=== PATIENT | female | born 1930 | race Caucasian/White ===

== ENCOUNTER 2018-08-28 08:35 | Emergency (ER) | payer OTHER ==
--- OUTSIDE RECORDS SUMMARY | 2018-08-28 08:38 | XMS REPORT | Clinical Summary ---
:1930 Author Organization [facility] Address [address] [place] [address] Phone Care Team Providers Name Role Phone Unavailable Primary Care Provider Unavailable Allergies Active Allergy Reactions Severity Noted Date Comments Penicillins Rash Low 2017 Current Medications Prescription Sig. Disp. Refills Start End Date Status Date atorvastatin (LIPITOR) Take 10 mg by Active 10 MG tablet mouth nightly. aspirin 81 MG chewable Take 81 mg by Active tablet mouth daily. omeprazole (PRILOSEC) 40 Take 40 mg by Active MG capsule mouth daily. linaclotide (LINZESS) Take 145 mcg Active 145 mcg Cap by mouth Every morning on an empty stomach. CALCIUM Take 600 mg Active CARBONATE/VITAMIN D3 by mouth 2 (CALTRATE-600 PLUS (two) times VITAMIN D3 ORAL) daily with breakfast and dinner. FOLIC Take 1 tablet Active ACID/MULTIVIT-MIN/LUTEIN by mouth as (CENTRUM SILVER ORAL) needed. acetaminophen (TYLENOL) Take 2 30 tablet 0 10/20/20 Active 325 MG tablet tablets (650 7 18 mg total) by mouth every 6 (six) hours as needed for Pain or Fever (headache) for up to 360 days. amlodipine-olmesartan Take 1 tablet 10/25/20 Discontinued (LINDSEY) 5-20 mg per by mouth 17 tablet daily. metoprolol (LOPRESSOR) Take 100 mg 10/25/20 Discontinued 100 MG tablet by mouth 17 nightly. hydroCHLOROthiazide Take 12.5 mg 10/25/20 Discontinued (HYDRODIURIL) 12.5 MG by mouth 17 tablet daily. acetaminophen (TYLENOL) Take 650 mg 10/25/20 Discontinued 325 MG tablet by mouth 17 every 6 (six) hours as needed for Pain. ACETAMINOPHEN/DIPHENHYDR Take 500 mg 10/25/20 Discontinued AMINE (TYLENOL PM ORAL) by mouth 17 every night as needed. senna-docusate (SENOKOT Take 1 tablet 60 tablet 0 11/24/19 S) 8.6-50 mg per tablet by mouth 2 7 18 (two) times daily for 30 days. lactulose (CHRONULAC) 20 Take 30 mLs 2700 mL 0 10/25/20 Discontinued gram/30 mL solution (20 g total) 7 17 by mouth 3 (three) times daily for 30 days. amLODIPine (NORVASC) 10 Take 1 tablet 30 tablet 0 11/25/19 MG tablet (10 mg total) 7 18 by mouth daily for 30 days. lactulose (CHRONULAC) 20 Take 30 mLs 2700 mL 0 11/24/19 gram/30 mL solution (20 g total) 7 18 by mouth 3 (three) times daily as needed (constipation ) for up to 30 days. losartan (COZAAR) 25 MG Take 1 tablet 30 tablet 0 11/25/19 tablet (25 mg total) 7 18 by mouth daily for 30 days. HYDROcodone-acetaminophe Take 1 tablet 10 tablet 0 11/04/20 n (NORCO 5-325) 5-325 mg by mouth 7 17 per tablet every 6 (six) hours as needed for up to 10 days. Max Daily Amount: 4 tablets Active Problems Problem Noted Date Hypertension, essential 10/14/2017 Fracture of left humerus 10/14/2017 Diplopia 10/14/2017 Bradycardia 10/14/2017 Macrocytic anemia 10/14/2017 History of DVT (deep vein thrombosis) 10/14/2017 Class 1 obesity without serious comorbidity with body mass index (BMI) of 31.0 to 31.9 in adult Stroke (HCC) 2017 Encounters Date Type Specialty Care Team Description 10/19/2017 Procedure Pass 10/19/2017 Surgery Margie, ORIEduardo,HUMERUS Rafael Mathis MD 10/18/2017 Anesthesia Event Jo Shaikh MD 10/14/2017 Orders Only General Internal Medicine 2017 - Hospital Encounter General Internal Nathan Rosa Acute ischemic 10/25/2017 Medicine MD Semaj stroke Anirudh Brooks MD ([facility]);Received Lety Sandoval tissue plasminogen MD Darius activator (t-PA) less than 24 hours prior to arrival;Closed fracture of shoulder, unspecified laterality, initial encounter;Bradycard ia;Class 1 obesity without serious comorbidity with body mass index (BMI) of 31.0 to 31.9 in adult, unspecified obesity type;Diplopia;Histo ry of DVT (deep vein thrombosis);Hyperte nsion, essential;Macrocyti c anemia;Late effect of stroke after 08/27/2017 Social History Tobacco Use Types Packs/Day Years Used Date Never Smoker Smokeless Tobacco: Never Used Alcohol Use Drinks/Week oz/Week Comments No Sex Assigned at Date Recorded Not on file Last Filed Vital Signs Vital Sign Reading Time Taken Blood Pressure 123/60 10/25/2017 3:00 PM LAYOUT MAN Pulse 81 10/25/2017 3:00 PM LAYOUT MAN Temperature 36.5 C (97.7 F) 10/25/2017 3:00 PM LAYOUT MAN Respiratory Rate 18 10/25/2017 3:00 PM LAYOUT MAN Oxygen Saturation 95% 10/25/2017 3:00 PM LAYOUT MAN Inhaled Oxygen Concentration - - Weight 72 kg (158 lb 11.7 oz) 10/14/2017 1:00 AM LAYOUT MAN Height 152.4 cm (5') 2017 1:05 PM LAYOUT MAN Body Mass Index 31 10/14/2017 1:00 AM LAYOUT MAN Plan of Treatment Not on file Implants Implanted Type Area Industrial Education Teacher Device Expiration Model / Identifier Date Serial / Lot Scr Lck St T15 3.5x38 Ns 212.116 - [id number] Fracture Left: SYNTHES:SYNTHES 212.116 / Implanted: Qty: 2 on 10/19/2017 by Rafael Hanson MD /[employer] / n Scr Lck St T15 3.5x40 Ns 212.117 - [id number] Fracture Left: SYNTHES:SYNTHES 212.117 / Implanted: Qty: 4 on 10/19/2017 by Rafael Hanson MD /[employer] / n Scr Lck St T15 3.5x45 Ns 212.119 - [id number] Fracture Left: SYNTHES:SYNTHES 212.119 / Implanted: Qty: 4 on 10/19/2017 by Rafael Hanson MD /[employer] / n Scr Lck St T15 3.5x50 Ns 212.121 - [id number] Fracture Left: SYNTHES:SYNTHES 212.121 / Implanted: Qty: 1 on 10/19/2017 by Rafael Hanson MD /[employer] / n Scr Crtx St D/L/P 3.5x24 Ns - [id number] Fracture Left: SYNTHES:SYNTHES 204.824 / Implanted: Qty: 2 on 10/19/2017 by Rafael Hanson MD /[employer] / n Scr Crtx St D/L/P 3.5x26 Ns - [id number] Fracture Left: SYNTHES:SYNTHES 204.826 / Implanted: Qty: 2 on 10/19/2017 by Rafael Hanson MD /[employer] / n Plt Hum Prx Lcp Std 5h 3.5x114 241.903 - [id number] Fracture Left: SYNTHES: SYNTHES 241.903 / Implanted: Qty: 1 on 10/19/2017 by Rafael Hanson MD /[employer] / n [id number] Wire-K Trcr-1e Pt-5 1.6x150 Ns 292.71 - [id number] Fracture Left: SYNTHES: SYNTHES 292.71 / Implanted: Qty: 1 on 10/19/2017 by Rafael Hanson MD /[employer] / n Explanted Type Area Industrial Education Teacher Device Expiration Model / Identifier Date Serial / Lot Pin Stnmn Trcr Dbl End3/32x9in [id number] - [id number] Fracture Left: TELEFLEX [id number] / Explanted: Qty: 4 on 10/19/2017 by Rafael Hanson MD /[employer] MED:K-MEDIC / n Procedures Procedure Name Priority Date/Time Associated Diagnosis Comments PROCEDURE W/ C-ARM 10/19/2017 11:40 AM LAYOUT MAN Closed fracture of proximal end of left humerus, unspecified fracture morphology, initial encounter Special Needs (C-ARM, SYNTHES, REQ 0730) ORIF,HUMERUS 10/19/2017 11:40 AM LAYOUT MAN Closed fracture of proximal end of left humerus, unspecified fracture morphology, initial encounter Special Needs (C-ARM, SYNTHES, REQ 0730) after 08/27/2017 Results EKG-SCANNED (10/27/2017 10:20 AM)RHYTHM STRIP - SCAN (10/27/2017 10:20 AM)POC- Glucose meter (10/25/2017 5:25 PM)Only the most recent of48 resultswithin the time period is included. Component Value Ref Range POC-Glucose Meter 115 (H)Comment: TESTED AT [address] 70 - 110 mg/[place] [id number] Specimen Performing Laboratory Blood [address] [address] CBC with platelet count + automated diff (10/25/2017 5:10 AM)Only the most recent of13 resultswithin the time period is included. Component Value Ref Range WBC 10.9 (H) 3.5 - 10.5 K/L RBC 2.41 (L) 3.93 - 5.22 M/L Hemoglobin 8.0 (L) 11.2 - 15.7 GM/DL Hematocrit 23.4 (L) 34.1 - 44.9 % MCV 97.1 (H) 79.4 - 94.8 fL MCH 33.2 (H) 25.6 - 32.2 pg MCHC 34.2 32.2 - 35.5 GM/DL RDW 14.1 11.7 - 14.4 % Platelets 605 (H) 150 - 450 K/CU MM MPV 9.3 (L) 9.4 - 12.3 fL nRBC 0 0 - 0 /100 WBC % Neutros 59 % % Lymphs 27 % % Monos 11 % % Eos 3 % % Baso 0 % # Neutros 6.44 (H) 1.56 - 6.13 K/L # Lymphs 2.92 1.18 - 3.74 K/L # Monos 1.18 (H) 0.24 - 0.36 K/L # Eos 0.31 0.04 - 0.36 K/L # Baso 0.04 0.01 - 0.08 K/L Immature Granulocytes-Relative 0 0 - 1 % Specimen Performing Laboratory Blood - Arm, Right [address] [address] CBC with platelet count + automated diff (10/25/2017 5:10 AM)Only the most recent of13 resultswithin the time period is included. Specimen Performing Laboratory Blood Narrative The following orders were created for panel order CBC with platelet count + automated diff. Procedure Abnormality Status --------- ------ CBC with platelet count ...[[id number]]AbnormalFinal result Please view results for these tests on the individual orders. Basic Metabolic Panel (10/25/2017 5:10 AM)Only the most recent of15 resultswithin the time period is included. Component Value Ref Range Sodium 136 136 - 145 meq/L Potassium 4.0 3.5 - 5.1 meq/L Chloride 100 98 - 107 meq/L CO2 26 22 - 29 meq/L BUN 6 (L) 7 - 21 mg/dL Creatinine 0.70 0.57 - 1.25 mg/dL Glucose 90 70 - 105 mg/dL Calcium 8.7 8.4 - 10.2 mg/dL EGFR 79Comment: ESTIMATED GFR IS NOT ACCURATE mL/min/1.73 sq m CREATININE CLEARANCE IN PREDICTING GLOMERULAR FILTRATION RATE. ESTIMATED GFR IS NOT APPLICABLE FOR DIALYSIS PATIENTS. Specimen Performing Laboratory Blood - Arm, [place] [address] TRANSFUSION SERVICE REPORT - SCAN (10/20/2017 5:42 PM)CT pelvis without IV contrast (10/19/2017 6:51 PM) Specimen Performing Laboratory [facility] Narrative FINAL REPORT CT, PELVIS, WO CONTRAST INDICATION: Pelvis trauma, fx known or suspected, xray insufficient COMPARISON: Correlation to plain films series of the same date, approximately eight hours prior TECHNIQUE: Noncontrast CT examination of the pelvic osseous structures. Coronal and sagittal reformatted images also provided. DOSE REDUCTION: Dose modulation, iterative reconstruction, and/or weight-based adjustment of the mA/kV was utilized to reduce the radiation dose to as low as reasonably achievable. FINDINGS: Osseous structures: Pelvic bones are intact. Acetabular brumfield and columns are preserved. Inferior and superior pubic rami are intact. The symphyseal interval is preserved. Degenerative changes are present bilaterally at the sacroiliac joints. Sacral elements are intact. The femoral heads, necks and proximal shafts are intact. No joint effusion is present. Soft tissue structures: Mild atrophic changes are noted in the pelvic girdle. There is no hematoma. Included portions of the peritoneal and retroperitoneal structures reveal no traumatic abnormalities. Incidental note of distal diverticular disease without associated inflammatory signs. Superficial soft tissue structures are unremarkable. Urinary bladder is decompressed by the presence of a Lee catheter. IMPRESSION: Degenerative changes without acute or traumatic osseous abnormality in the pelvis. Signed: JR Mason Robert MD Report Verified Date/Time:10/19/2017 21:24:34 Reading Location: [address] Transitional Reading Room Procedure Note Interface, External Ris In - 10/19/2017 9:26 PM LAYOUT MAN FINAL REPORT CT, PELVIS, WO CONTRAST INDICATION: Pelvis trauma, fx known or suspected, xray insufficient COMPARISON: Correlation to plain films series of the same date, approximately eight hours prior TECHNIQUE: Noncontrast CT examination of the pelvic osseous structures. Coronal and sagittal reformatted images also provided. DOSE REDUCTION: Dose modulation, iterative reconstruction, and/or weight-based adjustment of the mA/kV was utilized to reduce the radiation dose to as low as reasonably achievable. FINDINGS: Osseous structures: Pelvic bones are intact. Acetabular brumfield and columns are preserved. Inferior and superior pubic rami are intact. The symphyseal interval is preserved. Degenerative changes are present bilaterally at the sacroiliac joints. Sacral elements are intact. The femoral heads, necks and proximal shafts are intact. No joint effusion is present. Soft tissue structures: Mild atrophic changes are noted in the pelvic girdle. There is no hematoma. Included portions of the peritoneal and retroperitoneal structures reveal no traumatic abnormalities. Incidental note of distal diverticular disease without associated inflammatory signs. Superficial soft tissue structures are unremarkable. Urinary bladder is decompressed by the presence of a Lee catheter. IMPRESSION: Degenerative changes without acute or traumatic osseous abnormality in the pelvis. Signed: JR Mason Robert MD Report Verified Date/Time: 10/19/2017 21:24:34 Reading Location: [address] Transitional Reading Room Hemoglobin and hematocrit, blood (10/19/2017 4:52 PM) Component Value Ref Range Hemoglobin 8.2 (L) 11.2 - 15.7 GM/DL Hematocrit 23.7 (L) 34.1 - 44.9 % Specimen Performing Laboratory Blood [facility] [address] [address] [place] abrading machine tender in or 30 minute increments (10/19/2017 3:05 PM) Specimen Performing Laboratory GE [facility] Narrative FINAL REPORT Fluoroscopic exam Clinical History: LEFT HUMERUS ORIF Impression: Fluoroscopic assistance is provided for a procedure. The radiologist is not present during the procedure. Images are presented for interpretation at the completion of the procedure.Please refer to the procedure report for more details. Number of images obtained:2 Fluoroscopy time: Not provided Signed: Sanford Bradley MD Report Verified Date/Time:10/19/2017 17:00:21 Reading Location: [address] Consult Reading Room Procedure Note Interface, External Ris In - 10/19/2017 5:02 PM LAYOUT MAN FINAL REPORT Fluoroscopic exam Clinical History: LEFT HUMERUS ORIF Impression: Fluoroscopic assistance is provided for a procedure. The radiologist is not present during the procedure. Images are presented for interpretation at the completion of the procedure. Please refer to the procedure report for more details. Number of images obtained: 2 Fluoroscopy time: Not provided Signed: Sanford Bradley MD Report Verified Date/Time: 10/19/2017 17:00:21 Reading Location: [address] Consult Reading Room THESIA PERIPHERAL BLOCK (10/19/2017 11:32 AM) Narrative Lisha Brown MD 10/19/2017 11:32 AM Peripheral Block Patient location during procedure: pre-op Start time: 10/19/2017 11:20 AM End time: 10/19/2017 11:24 AM Staffing Anesthesiologist: LISHA BROWN Performed by: anesthesiologist Preanesthetic Checklist Completed: patient identified, site marked, surgical consent, pre-op evaluation, timeout performed, IV checked, risks and benefits discussed and monitors and equipment checked Peripheral Block Patient position: right lateral decubitus Prep: ChloraPrep Patient monitoring: heart rate, quality assurance monitor final and continuous pulse ox Block type: Interscalene Laterality: left Injection technique: single-shot Procedures: ultrasound guided, nerve stimulator and landmark technique Local infiltration: ropivicaine Infiltration strength: 0.35 % Dose: 20 mL Needle Needle type: pajunk. Needle gauge: 21 G Needle length: 100 mm Assessment Injection assessment: negative aspiration for heme, no paresthesia on injection, incremental injection and local visualized surrounding nerve on ultrasound Paresthesia pain: none Heart rate change: no Slow fractionated injection: yes Additional Notes Patient tolerated well.No pain on injection or throughout procedure. Procedure Note Lisha Brown MD - 10/19/2017 11:30 AM LAYOUT MAN Peripheral Block Patient location during procedure: pre-op Start time: 10/19/2017 11:20 AM End time: 10/19/2017 11:24 AM Staffing Anesthesiologist: LISHA BROWN Performed by: anesthesiologist Preanesthetic Checklist Completed: patient identified, site marked, surgical consent, pre-op evaluation , timeout performed, IV checked, risks and benefits discussed and monitors and equipment checked Peripheral Block Patient position: right lateral decubitus Prep: ChloraPrep Patient monitoring: heart rate, quality assurance monitor final and continuous pulse ox Block type: Interscalene Laterality: left Injection technique: single-shot Procedures: ultrasound guided, nerve stimulator and landmark technique Local infiltration: ropivicaine Infiltration strength: 0.35 % Dose: 20 mL Needle Needle type: pajunk. Needle gauge: 21 G Needle length: 100 mm Assessment Injection assessment: negative aspiration for heme, no paresthesia on injection , incremental injection and local visualized surrounding nerve on ultrasound Paresthesia pain: none Heart rate change: no Slow fractionated injection: yes Additional Notes Patient tolerated well. No pain on injection or throughout procedure. XR hip 2 views left (10/19/2017 11:02 AM) Specimen Performing Laboratory [facility] Narrative FINAL REPORT Radiograph of the pelvis and left hip Reason for exam: Possible left femoral neck fracture Comparison:No prior Discussion: No displaced fracture, or location is identified. Symphysis pubis is congruent. Bony mineralization is slightly decreased. Visualized soft tissues are unremarkable. Impressions: No fracture or dislocation is identified. Signed: Sanford Bradley MD Report Verified Date/Time:10/19/2017 11:15:18 Reading Location: [facility] Radiology Reading Room Procedure Note Interface, External Ris In - 10/19/2017 11:17 AM LAYOUT MAN FINAL REPORT Radiograph of the pelvis and left hip Reason for exam: Possible left femoral neck fracture Comparison: No prior Discussion: No displaced fracture, or location is identified. Symphysis pubis is congruent. Bony mineralization is slightly decreased. Visualized soft tissues are unremarkable. Impressions: No fracture or dislocation is identified. Signed: Sanford Bradley MD Report Verified Date/Time: 10/19/2017 11:15:18 Reading Location: [facility] Radiology Reading Room pelvis 1 or 2 views (10/19/2017 11:02 AM) Specimen Performing Laboratory GE RIS Narrative FINAL REPORT Radiograph of the pelvis and left hip Reason for exam: Possible left femoral neck fracture Comparison:No prior Discussion: No displaced fracture, or location is identified. Symphysis pubis is congruent. Bony mineralization is slightly decreased. Visualized soft tissues are unremarkable. Impressions: No fracture or dislocation is identified. Signed: Sanford Bradley MD Report Verified Date/Time:10/19/2017 11:15:18 Reading Location: [facility] Radiology Reading Room Procedure Note Interface, External Ris In - 10/19/2017 11:17 AM LAYOUT MAN FINAL REPORT Radiograph of the pelvis and left hip Reason for exam: Possible left femoral neck fracture Comparison: No prior Discussion: No displaced fracture, or location is identified. Symphysis pubis is congruent. Bony mineralization is slightly decreased. Visualized soft tissues are unremarkable. Impressions: No fracture or dislocation is identified. Signed: Sanford Bradley MD Report Verified Date/Time: 10/19/2017 11:15:18 Reading Location: [facility] Radiology Reading Room Type and screen, automated (10/19/2017 3:56 AM) Component Value Ref Range ABO/RH AUTOMATED (BEAKER) A POSITIVE Ab Scrn NEGATIVE Specimen Performing Laboratory Blood [facility] [address] [address] ECHOCARDIOGRAM REPORT - SCAN (10/17/2017 7:20 AM)Only the most recent of2 resultswithin the time period is included.Phosphorus (10/17/2017 6:25 AM)Only the most recent of4 resultswithin the time period is included. Component Value Ref Range Phosphorus 2.7 2.3 - 4.7 mg/dL Specimen Performing Laboratory Blood [address] [address] Osmolality, serum (10/17/2017 6:25 AM) Component Value Ref Range Osmolality Serum 276 275 - 295 mOsm/kg Specimen Performing Laboratory [address] [address] Magnesium (10/17/2017 6:25 AM)Only the most recent of4 resultswithin the time period is included. Component Value Ref Range Magnesium 1.8 1.6 - 2.6 mg/dL Specimen Performing Laboratory [address] [address] Sodium, random urine (10/16/2017 2:16 PM) Component Value Ref Range Sodium Urine <20 meq/L Specimen Performing Laboratory Urine - Urine, [facility] [address] [address] Narrative Reference Range: No Normals Potassium, random urine (10/16/2017 2:16 PM) Component Value Ref Range Potassium Urine 16.3 meq/L Specimen Performing Laboratory Urine - Urine, [facility] [address] [address] Narrative Reference Range: No Normals Osmolality, urine (10/16/2017 2:16 PM) Component Value Ref Range Osmolality, Ur 237 40 - 1400 mOsm/kg Specimen Performing Laboratory Urine - Urine, [address] [address] Chloride, random urine (10/16/2017 2:16 PM) Component Value Ref Range ChlorideUr <20 meq/L Specimen Performing Laboratory Urine - Urine, [facility] [address] [address] Narrative Reference Range: No Normals CT upper extremity without contrast left (10/16/2017 9:50 AM) Specimen Performing Laboratory [facility] Narrative FINAL REPORT INDICATION: 87-year-old female with left proximal humerus fracture. COMPARISON: Left humerus radiograph 2017 TECHNIQUE: CT of the upper extremity (left shoulder / proximal humerus) was performed WITHOUT contrast. The exam was performed according to our department dose-optimization protocol, which includes automated exposure control, adjustments of mA and kV according to patient size. Iterative reconstructions are also sometimes employed. FINDINGS: There is a three part fracture of the left humeral neck. The primary fracture fragment (humeral shaft) is displaced anterolaterally approximately 1.5 cm and angulated 70 degrees posterolateral relative to the humeral head. The secondary fracture fragment (greater tuberosity) measures approximately 2 x 1 x 1 cm and is displaced 1 cm. There is also a nondisplaced fracture involving the lesser tuberosity. The humeral head is severely subluxed anterior and inferior to the glenoid. There is no glenoid fracture. There is a lipohemarthrosis with layering fat in the anterior subdeltoid bursa indicating a full thickness rotator cuff tear. Mild bony hypertrophy of the acromioclavicular joint is noted. No fracture is demonstrated in the visualized part of the left clavicle or in the visualized left ribs. IMPRESSION: Three part left humeral neck fracture with anteroinferior severe subluxation of the humeral head and with rotator cuff tear. Signed: Bayron Rosas MD Report Verified Date/Time:10/16/2017 11:49:30 Reading Location: [address] Reading Room Procedure Note Interface, External Ris In - 10/16/2017 11:51 AM LAYOUT MAN FINAL REPORT INDICATION: 87-year-old female with left proximal humerus fracture. COMPARISON: Left humerus radiograph 2017 TECHNIQUE: CT of the upper extremity (left shoulder / proximal humerus) was performed WITHOUT contrast. The exam was performed according to our department dose-optimization protocol, which includes automated exposure control, adjustments of mA and kV according to patient size. Iterative reconstructions are also sometimes employed. FINDINGS: There is a three part fracture of the left humeral neck. The primary fracture fragment (humeral shaft) is displaced anterolaterally approximately 1.5 cm and angulated 70 degrees posterolateral relative to the humeral head. The secondary fracture fragment (greater tuberosity) measures approximately 2 x 1 x 1 cm and is displaced 1 cm. There is also a nondisplaced fracture involving the lesser tuberosity. The humeral head is severely subluxed anterior and inferior to the glenoid. There is no glenoid fracture. There is a lipohemarthrosis with layering fat in the anterior subdeltoid bursa indicating a full thickness rotator cuff tear. Mild bony hypertrophy of the acromioclavicular joint is noted. No fracture is demonstrated in the visualized part of the left clavicle or in the visualized left ribs. IMPRESSION: Three part left humeral neck fracture with anteroinferior severe subluxation of the humeral head and with rotator cuff tear. Signed: Bayron Rosas MD Report Verified Date/Time: 10/16/2017 11:49:30 Reading Location: [address] Transitional Reading Room Urinalysis w/Microscopic + Reflex to Culture (10/15/2017 4:48 PM) Component Value Ref Range Color, UA Yellow Clarity, UA Hazy Specific [place], UA 1.011 1.001 - 1.035 pH, UA 5.5 5.0 - 8.0 Protein, UA Negative Negative Glucose, UA Negative Negative Ketones, UA Negative Negative Bilirubin, UA Negative Negative Blood, UA Negative Negative Nitrite, UA Negative Negative Leukocytes, UA Large (A) Negative Urobilinogen, UA 0.2 0.2 - 1.0 mg/dL RBC, UA 1 /HPF WBC, UA 23 /HPF Bacteria, UA Many Mucus Rare Hyaline Casts, UA 3 /LPF Crystals, Urine Occasional Specimen Source Specimen Performing Laboratory Urine [address] [address] Urine culture (10/15/2017 4:48 PM) Component Value Ref Range Result Result >100,000 col/mL Klebsiella pneumoniae (A) Specimen Performing Laboratory Urine - Urine, Unspecified Source [address] [address] Organism Antibiotic Method Susceptibility Klebsiella pneumoniae Amikacin <=2: Susceptible Klebsiella pneumoniae Ampicillin + Sulbactam 4: Susceptible Klebsiella pneumoniae Aztreonam <=1: Susceptible Klebsiella pneumoniae Cefepime <=1: Susceptible Klebsiella pneumoniae Cefoxitin <=4: Susceptible Klebsiella pneumoniae Ceftazidime <=1: Susceptible Klebsiella pneumoniae Ceftriaxone <=1: Susceptible Klebsiella pneumoniae Ertapenem <=0.5: Susceptible Klebsiella pneumoniae Gentamicin <=1: Susceptible Klebsiella pneumoniae Levofloxacin <=0.12: Susceptible Klebsiella pneumoniae Meropenem <=0.25: Susceptible Klebsiella pneumoniae Nitrofurantoin 64: Resistant Klebsiella pneumoniae Piperacillin + Tazobactam <=4: Susceptible Klebsiella pneumoniae Tetracycline <=1: Susceptible Klebsiella pneumoniae Tobramycin <=1: Susceptible Klebsiella pneumoniae Trimethoprim + Sulfamethoxazole <=20: Susceptible Limited 2D Echocardiogram (10/15/2017 3:36 PM) Component Value Ref Range Ejection Fraction Specimen Performing Laboratory [facility] Narrative Transthoracic Echocardiography Report (TTE) Demographics Patient Name MAIKOL MCKEON Date of Study 10/15/2017 [id number] Female Visit Number [id number] [id number] Room Number 2226 Number Date of Birth1930Referring Physician Moe Evans Age87 year(s)Homemaker Companion Alivia Ramirez Interpreting Lucero Saenz MD Procedure Type of Study TTE procedure:LIMITED 2D ECHOCARDIOGRAM (Routine) Indications:PFO and Stroke workup . Clinical History HGB 10.2 HCT 29 % Stroke, HTN, Bradycardia, DVT, Anemia, Obesity Contrast Medium: Bubble Study. Height: 60 inches Weight: 71.67 kg (158 lbs) BSA: 1.69 m^2 BMI: 30.86 kg/m^2 HR: 80 bpm BP: 161/70 mmHg Signature Findings Technical Quality: Technically adequate exam. Left Limited study to evaluate PFO. Full study was done . Ventricle Atrial IV saline contrast injection was negative for a PFO (patent Septum foramen ovale) at rest and post Valsalva . Procedure Note Interface, External Ris In - 10/16/2017 8:38 PM LAYOUT MAN Transthoracic Echocardiography Report (TTE) Demographics Patient Name MAIKOL MCKEON Date of Study 10/15/2017 Gender Female Visit Number [id number] Race Room Number 2226 Number Date of 1930 Referring Physician Moe Evans Age 87 year(s) Homemaker Companion Alivia Tony Pullman Car Clerk Lesly Ramirez Interpreting Sloane Saenz Physician Procedure Type of Study TTE procedure:LIMITED 2D ECHOCARDIOGRAM (Routine) Indications:PFO and Stroke workup . Clinical History HGB 10.2 HCT 29 % Stroke, HTN, Bradycardia, DVT, Anemia, Obesity Contrast Medium: Bubble Study. Height: 60 inches Weight: 71.67 kg (158 lbs) BSA: 1.69 m^2 BMI: 30.86 kg/m^2 HR: 80 bpm BP: 161/70 mmHg Signature Findings Technical Quality: Technically adequate exam. Left Limited study to evaluate PFO. Full study was done 10-14-17. Ventricle Atrial IV saline contrast injection was negative for a PFO (patent Septum foramen ovale) at rest and post Valsalva . PERIPHERAL VASCULAR REPORT - SCAN (10/15/2017 2:50 PM)Only the most recent of2 resultswithin the time period is included.Venous doppler legs bilateral (2016 10:51 AM) Component Value Ref Range Ejection Fraction Specimen Performing Laboratory [facility] Impressions Right Impression 1. There is no deep venous obstruction in the common femoral, profunda femoral, femoral, popliteal, posterior tibial or peroneal veins. 2. There is no superficial venous obstruction in the great saphenous vein. Left Impression 1. There is no deep venous obstruction in the common femoral, profunda femoral, femoral, popliteal, posterior tibial or peroneal veins. 2. There is no superficial venous obstruction in the great saphenous vein. Conclusions Summary Venous duplex imaging and compression of the bilateral lower extremities were performed. The veins were adequately visualized. The bilateral venous systems were patent and compressible with no evidence of thrombus. The venous Doppler waveforms were phasic with respiration. Signature Velocities are measured in cm/s ; Diameters are measured in cm Narrative PV LAB - Lower Extremities DVT Study Demographics Patient Name PRACHI,Date of Study2016 [place] [id number] Visit Number [id number] Gender Female Accession Number [id number] Date of Birth1930 [facility] Room [id number] Physician SonographerScindy Freitas Interpreting Kamari Brunner MD, PhysicianRPVI Procedure Type of Study: Veins: Lower Extremities DVT Study, VENOUS DOPPLER LEG, BILATERAL. Indications for Study:History of deep vein thrombosis. Patient Status:Routine. Study Location:Vascular Lab. Technical Quality:Adequate visualization. Risk Factors History of Disease + +----+ + !Diagnosis !Date!Comments ! + +----+ + !History/Risk Factors: !!Stroke, HTN, fractured arm, h/o DVT ! + +----+ + Procedure Note Interface, External Ris In - 10/15/2017 2:04 PM LAYOUT MAN PV LAB - Lower Extremities DVT Study Demographics Patient Name PRACHI, Date of Study 10/15/2017 [place] Age 87 Visit Number [id number] Gender Female Accession Number [id number] Date of 1930 Referring Nathan Rosa Room Number 2226 Physician Homemaker Companion Abbey Freitas Interpreting Kamari Brunner MD, Physician RPVI Procedure Type of Study: Veins: Lower Extremities DVT Study, VENOUS DOPPLER LEG, BILATERAL. Indications for Study:History of deep vein thrombosis. Patient Status:Routine. Study Location:Vascular Lab. Technical Quality:Adequate visualization. Risk Factors History of Disease + +----+ + !Diagnosis !Date!Comments ! + +----+ + !History/Risk Factors: ! !Stroke, HTN, fractured arm, h/o DVT ! + +----+ + Impressions Right Impression 1. There is no deep venous obstruction in the common femoral, profunda femoral, femoral, popliteal, posterior tibial or peroneal veins. 2. There is no superficial venous obstruction in the great saphenous vein. Left Impression 1. There is no deep venous obstruction in the common femoral, profunda femoral, femoral, popliteal, posterior tibial or peroneal veins. 2. There is no superficial venous obstruction in the great saphenous vein. Conclusions Summary Venous duplex imaging and compression of the bilateral lower extremities were performed. The veins were adequately visualized. The bilateral venous systems were patent and compressible with no evidence of thrombus. The venous Doppler waveforms were phasic with respiration. Signature Velocities are measured in cm/s ; Diameters are measured in cm Venous Doppler Arms Bilateral (10/15/2017 10:51 AM) Component Value Ref Range Ejection Fraction Specimen Performing Laboratory [facility] Impressions Right Impression 1. There is no deep venous obstruction in the jugular, subclavian, axillary, brachial, radial or ulnar veins. 2. There is no superficial venous obstruction in the cephalic or basilic veins. Left Impression 1. There is no deep venous obstruction in the jugular or subclavian veins. 2. The axillary, brachial, radial, ulnar, cephalic and basilic veins could not be visualized due to patient inability to move arm because of fracture and dislocation of shoulder. Conclusions Summary Venous duplex imaging and compression of the bilateral upper extremities was performed. The veins were adequately visualized. The right venous system was patent and compressible with no evidence of thrombus. The left jugular and subclavian veins were patent and compressible with no evidence of thrombus. The left axillary, brachial, radial, ulnar, cephalic and basilic veins were not visualized due to patient inability to move arm because of fracture and dislocation of shoulder. Signature Velocities are measured in cm/s ; Diameters are measured in cm Narrative PV LAB - Upper Extremities Veins Demographics Patient Name PRACHI,Date of Study2016 [place] [id number] Age87 Visit Number [id number] Gender Female Accession Number [id number] Date of Birth1930 [facility] Room [id number] Physician SonographerScindy Freitas Interpreting Kamari Brunner MD, PhysicianRPVI Procedure Type of Study: Veins: Upper Extremities Veins, VENOUS DOPPLER ARMS, BILATERAL. Indications for Study:History of deep vein thrombosis. Patient Status:Routine. Study Location:Vascular Lab. Technical Quality:Adequate visualization. Risk Factors History of Disease + +----+ + !Diagnosis !Date!Comments ! + +----+ + !History/Risk Factors: !!Stroke, HTN, fractured arm, h/o DVT ! + +----+ + Procedure Note Interface, External Ris In - 10/15/2017 2:04 PM LAYOUT MAN PV LAB - Upper Extremities Veins Demographics Patient Name PRACHI, Date of Study 10/15/2017 [place] Age 87 Visit Number [id number] Gender Female Accession Number [id number] Date of 1930 Referring Moe Evans Room Number 2226 Physician Homemaker Companion Abbey Freitas Interpreting Kamari Brunner MD, Physician RPVI Procedure Type of Study: Veins: Upper Extremities Veins, VENOUS DOPPLER ARMS, BILATERAL. Indications for Study:History of deep vein thrombosis. Patient Status:Routine. Study Location:Vascular Lab. Technical Quality:Adequate visualization. Risk Factors History of Disease + +----+ + !Diagnosis !Date!Comments ! + +----+ + !History/Risk Factors: ! !Stroke, HTN, fractured arm, h/o DVT ! + +----+ + Impressions Right Impression 1. There is no deep venous obstruction in the jugular, subclavian, axillary, brachial, radial or ulnar veins. 2. There is no superficial venous obstruction in the cephalic or basilic veins. Left Impression 1. There is no deep venous obstruction in the jugular or subclavian veins. 2. The axillary, brachial, radial, ulnar, cephalic and basilic veins could not be visualized due to patient inability to move arm because of fracture and dislocation of shoulder. Conclusions Summary Venous duplex imaging and compression of the bilateral upper extremities was performed. The veins were adequately visualized. The right venous system was patent and compressible with no evidence of thrombus. The left jugular and subclavian veins were patent and compressible with no evidence of thrombus. The left axillary, brachial, radial, ulnar, cephalic and basilic veins were not visualized due to patient inability to move arm because of fracture and dislocation of shoulder. Signature Velocities are measured in cm/s ; Diameters are measured in cm Troponin I (10/15/2017 8:35 AM)Only the most recent of3 resultswithin the time period is included. Component Value Ref Range Troponin I 0.02 0.00 - 0.03 ng/mL Specimen Performing Laboratory Blood [address] [address] Narrative Troponin I (TnI) levels must be interpreted in the context of the presenting symptoms and the clinical findings. Elevated TnI levels indicate myocardial damage, but are not specific for ischemic heart disease. Elevated TnI levels are seen in patients with other cardiac conditions (including myocarditis and congestive heart failure), and slight TnI elevations occur in patients with other conditions, including sepsis, renal failure, acidosis, acute neurological disease, and persistent tachyarrhythmia. Creatine Kinase (CK), Total and MB (10/15/2017 8:35 AM)Only the most recent of3 resultswithin the time period is included. Component Value Ref Range Total CK 98 29 - 200 U/L CK-MB 1.1 0.0 - 6.6 ng/mL MB Relative Index 1.1 % Specimen Performing Laboratory Blood [address] [address] Narrative CK-MB Reference Range: <6.7Normal 6.7-10.0Borderline >10.0 Abnormal Vitamin B12 and Folate (10/15/2017 4:10 AM) Component Value Ref Range Vitamin B12 443 213 - 816 pg/mL Folate 16.1 >=7.0 ng/mL Specimen Performing Laboratory Blood - Arm, [address] [address] Vitamin D, 25-Hydroxy (10/15/2017 4:10 AM) Component Value Ref Range Vitamin D 25-Hydroxy 29.2 6.6 - 49.9 ng/mL Specimen Performing Laboratory Blood - Arm, [address] [address] Narrative Effective 09/01/2017: Reference Range Change New: 6.6-49.9 ng/mL Previous: 13.0-47.8 ng/mL Recommended Vitamin D Target Range: 30.0-40.0 ng/mL Hepatic function panel (10/15/2017 4:10 AM) Component Value Ref Range Protein, Total 5.7 (L) 6.0 - 8.3 gm/dL Albumin 3.0 (L) 3.5 - 5.0 g/dL Total Bilirubin 1.2 0.2 - 1.2 mg/dL Bilirubin, Direct 0.6 (H) 0.1 - 0.5 mg/dL Alkaline Phosphatase 54 40 - 150 U/L AST 24 5 - 34 U/L ALT 12 6 - 55 U/L Specimen Performing Laboratory Blood - Arm, Right [address] [address] ECG 12 lead (10/14/2017 11:30 PM)Only the most recent of3 resultswithin the time period is included. Specimen Performing Laboratory [place] [facility] Narrative Ventricular Rate 70 BPM Atrial Rate 70 BPM P-R Interval 170 ms QRS Duration 86 ms Q-T Interval 430 ms QTC Calculation(Bazett) 464 ms P Randolph 63 degrees R Randolph -2 degrees T Randolph 115 degrees Normal sinus rhythm T wave abnormality, consider lateral ischemia Abnormal ECG When compared with ECG of 14-OCT-2017 21:09, Fusion complexes are no longer Present Nonspecific T wave abnormality now evident in Inferior leads Confirmed by MD DELAROSA PAOLO ([id number]) on 10/15/2017 8:44:36 AM Procedure Note Interface, External Ris In - 10/15/2017 8:44 AM LAYOUT MAN Ventricular Rate 70 BPM Atrial Rate 70 BPM P-R Interval 170 ms QRS Duration 86 ms Q-T Interval 430 ms QTC Calculation(Bazett) 464 ms P Randolph 63 degrees R Randolph -2 degrees T Randolph 115 degrees Normal sinus rhythm T wave abnormality, consider lateral ischemia Abnormal ECG When compared with ECG of 14-OCT-2017 21:09, Fusion complexes are no longer Present Nonspecific T wave abnormality now evident in Inferior leads Confirmed by MD DELAROSA PAOLO ([id number]) on 10/15/2017 8:44:36 AM 2D Echo W/Doppler(CW/PW/Color) (10/14/2017 10:56 AM) Component Value Ref Range Ejection Fraction Specimen Performing Laboratory [facility] Narrative Transthoracic Echocardiography Report (TTE) Demographics Patient Name Pamela MCKEON of Study 10/14/2017 [id number] GenderFemale Visit Number [id number] RaceCaucasian [id number] Number [id number] Number Date of Birth1930 Referring Physician Moe Evans Age87 year(s) Homemaker Companion Nuria Johnson [facility] AnalysOscar Kc,InterpretingAdonay Arriaza MD [facility] Physician Procedure Type of Study TTE procedure:2DECHO W DOPPLER(CW/PW/COLOR) (Routine) Indications:Suspected cardiac source of emboli. Clinical History HGB 10.2 HCT 29.0 % DVT, HTN, Stroke, HLD, L shoulder fracture Height: 60 inches Weight: 71.67 kg (158 lbs) BSA: 1.69 m^2 BMI: 30.86 kg/m^2 HR: 57 bpm BP: 160/47 mmHg Summary 1. Normal LV size and function. LVEF is >60%. Mild to moderate LVH noted. 2. Diastology: Grade 1 diastolic dysfunction. 3. Normal RV size and function. 4. No significant valvular heart disease. 5. Inadequate TR jet to estimate PASP. 6. Recommend to repeat the study with injection of agitated saline to rule out PFO. Signature Findings Technical Quality: Technically adequate exam. Rhythm/BPSinus bradycardia during the exam. Left Ventricle The left ventricle is chamber size (by vol index) is normal (female - LVED vol - 29-61ml/m2). Mild to moderate concentric LV hypertrophy. All of the LV segments contract normally . Global LV systolic function normal . Estimated LVEF by qualitative assessment is normal (>60%) . Grade 1 diastolic dysfunction (impaired relaxation and low-normal LA pressure). Left AtriumLA is adequately visualized. LA size is normal (16-34 ml/m2 ) . Right VentricleRV chamber size appears normal by limited views . Global RV systolic function is normal . Right Atrium The RA is well visualized. RA cavity size is normal . Aortic Valve Mild AoV cusp thickening. AoV cusp mobility is normal . No evidence of aortic regurgitation. No evidence of aortic stenosis. Mitral Valve Mild mitral annular calcification. Mild MV leaflet thickening. Tricuspid ValveNormal TV structure and function by available views and Doppler. Unable to estimate peak systolic PA pressure; inadequate TR velocity signal. Pulmonic Valve Normal PV structure and function by limited views and Doppler. AortaAortic root size (SInus of Valsalva diameter) is normal . PericardiumNo pericardial effusion is visualized. IVC/SVC/PA/PV/PleuralThe inferior vena cava is adequately visualized. The inferior vena cava size is normal . The estimated RA pressure by IVC dynamics 0-5mmHg . Chambers/Structures Left Atrium LA Volume: 43.2 mlLA Area: 17.57 cm^2 LA Vol. Index: 26 ml/m^2 Left Ventricle LVIDd: 3.55 cm LV Septum Diastolic: 1.31 cm LV PW Diastolic: 1.29 cm LVEDV Patterson's:67.49 ml LVEDVI: 40 ml/m^2 LVOT Diameter: 1.68 cm Aorta Ao Root S of Annita.: 3.24 cm Doppler/Quantitative Measurements Mitral Valve MV Peak E-Wave: 0.7 m/s MV Peak A-Wave: 1.5 m/s E/ A Ratio: 0.47 Peak Gradient: 1.94 mmHg Deceleration Time: 335.7 msec MV Narinder. Peak: Tissue Doppler E' Lateral Velocity: 0.09 m/s A' Lateral Velocity: 0.14 m/s E/ E': 8.12 Aortic Valve Peak Velocity: 1.88 m/sMean Velocity: 1.2 m/s Peak Gradient: 14.16 mmHgMean Gradient: 6.87 mmHg AV Area (continuity): 1.63 cm^2 AV VTI: 38.55 cm AV DVI: 0.73 LVOT Peak Velocity: 1.54 m/s Peak Gradient: 9.53 mmHg Mean Velocity: 0.94 m/s Mean Gradient: 4.2 mmHg LVOT Diameter: 1.68 cmLVOT VTI: 28.31 cm LVOT Area: 2.22 cm^2LVOT SV:62.72 ml LVOT CO: 3.58 l/min LVOT CI: 2.12 l/min/m^2 Procedure Note Interface, External Ris In - 10/14/2017 6:55 PM LAYOUT MAN Transthoracic Echocardiography Report (TTE) Demographics Patient Name MAIKOL MCKEON Date of Study 10/14/2017 Gender Female Visit Number [id number] Race Room Number 2226 Number Date of 1930 Referring Physician Moe Evans Age 87 year(s) Homemaker Companion Nuria Johnson, [facility] Pullman Car Clerk Eulalia Kc, Interpreting Adonay Arriaza MD [facility] Physician Procedure Type of Study TTE procedure:2DECHO W DOPPLER(CW/PW/COLOR) (Routine) Indications:Suspected cardiac source of emboli. Clinical History HGB 10.2 HCT 29.0 % DVT, HTN, Stroke, HLD, L shoulder fracture Height: 60 inches Weight: 71.67 kg (158 lbs) BSA: 1.69 m^2 BMI: 30.86 kg/m^2 HR: 57 bpm BP: 160/47 mmHg Summary 1. Normal LV size and function. LVEF is >60%. Mild to moderate LVH noted. 2. Diastology: Grade 1 diastolic dysfunction. 3. Normal RV size and function. 4. No significant valvular heart disease. 5. Inadequate TR jet to estimate PASP. 6. Recommend to repeat the study with injection of agitated saline to rule out PFO. Signature Findings Technical Quality: Technically adequate exam. Rhythm/BP Sinus bradycardia during the exam. Left Ventricle The left ventricle is chamber size (by vol index) is normal (female - LVED vol - 29-61ml/m2). Mild to moderate concentric LV hypertrophy. All of the LV segments contract normally . Global LV systolic function normal . Estimated LVEF by qualitative assessment is normal (>60%) . Grade 1 diastolic dysfunction (impaired relaxation and low-normal LA pressure). Left Atrium LA is adequately visualized. LA size is normal (16-34 ml/m2) . Right Ventricle RV chamber size appears normal by limited views . Global RV systolic function is normal . Right Atrium The RA is well visualized. RA cavity size is normal . Aortic Valve Mild AoV cusp thickening. AoV cusp mobility is normal . No evidence of aortic regurgitation. No evidence of aortic stenosis. Mitral Valve Mild mitral annular calcification. Mild MV leaflet thickening. Tricuspid Valve Normal TV structure and function by available views and Doppler. Unable to estimate peak systolic PA pressure; inadequate TR velocity signal. Pulmonic Valve Normal PV structure and function by limited views and Doppler. Aorta Aortic root size (SInus of Valsalva diameter) is normal . Pericardium No pericardial effusion is visualized. IVC/SVC/PA/PV/Pleural The inferior vena cava is adequately visualized. The inferior vena cava size is normal . The estimated RA pressure by IVC dynamics 0-5mmHg . Chambers/Structures Left Atrium LA Volume: 43.2 ml LA Area: 17.57 cm^2 LA Vol. Index: 26 ml/m^2 Left Ventricle LVIDd: 3.55 cm LV Septum Diastolic: 1.31 cm LV PW Diastolic: 1.29 cm LVEDV Patterson's:67.49 ml LVEDVI: 40 ml/m^2 LVOT Diameter: 1.68 cm Aorta Ao Root S of Annita.: 3.24 cm Doppler/Quantitative Measurements Mitral Valve MV Peak E-Wave: 0.7 m/s MV Peak A-Wave: 1.5 m/s E/A Ratio: 0.47 Peak Gradient: 1.94 mmHg Deceleration Time: 335.7 msec MV Narinder. Peak: Tissue Doppler E' Lateral Velocity: 0.09 m/s A' Lateral Velocity: 0.14 m/s E/E': 8.12 Aortic Valve Peak Velocity: 1.88 m/s Mean Velocity: 1.2 m/s Peak Gradient: 14.16 mmHg Mean Gradient: 6.87 mmHg AV Area (continuity): 1.63 cm^2 AV VTI: 38.55 cm AV DVI: 0.73 LVOT Peak Velocity: 1.54 m/s Peak Gradient: 9.53 mmHg Mean Velocity: 0.94 m/s Mean Gradient: 4.2 mmHg LVOT Diameter: 1.68 cm LVOT VTI: 28.31 cm LVOT Area: 2.22 cm^2 LVOT SV:62.72 ml LVOT CO: 3.58 l/min LVOT CI: 2.12 l/min/m^2 MR brain without IV contrast (10/14/2017 10:06 AM) Specimen Performing Laboratory RIS Narrative FINAL REPORT MRI brain without contrast 10/14/2017 10:07 AM CLINICAL INDICATION: Stroke Stroke evaluation TECHNIQUE: Multiplanar, multisequence MR imaging of the brain was performed utilizing the following imaging sequences: Axial T1, T2, FLAIR, GRE, and DWI; sagittal and coronal T1-weighted images. COMPARISON: None available FINDINGS: There is a tiny acute nonhemorrhagic infarct in the paramedian right mesencephalon, adjacent to the cerebral aqueduct. There is no hematoma, mass, hydrocephalus, or extra-axial collection. There is mild chronic microvascular ischemia in the supratentorial white matter. There is generalized parenchymal volume loss. Normal appearing flow-voids are present in the major intracranial vascular structures. The sellar and pineal regions are normal. The craniovertebral junction is intact. The orbits, face, and skull base are without worrisome finding. IMPRESSION: 1. Acute nonhemorrhagic right mesencephalic infarct. 2. Mild chronic microvascular ischemia. Signed: Kalia Nelson MD Report Verified Date/Time:10/14/2017 10:10:31 Reading Location: [address] Neuro Reading Room Procedure Note Interface, External Ris In - 10/14/2017 10:12 AM LAYOUT MAN FINAL REPORT MRI brain without contrast 10/14/2017 10:07 AM CLINICAL INDICATION: Stroke Stroke evaluation TECHNIQUE: Multiplanar, multisequence MR imaging of the brain was performed utilizing the following imaging sequences: Axial T1, T2, FLAIR, GRE, and DWI; sagittal and coronal T1-weighted images. COMPARISON: None available FINDINGS: There is a tiny acute nonhemorrhagic infarct in the paramedian right mesencephalon, adjacent to the cerebral aqueduct. There is no hematoma, mass, hydrocephalus, or extra-axial collection. There is mild chronic microvascular ischemia in the supratentorial white matter. There is generalized parenchymal volume loss. Normal appearing flow-voids are present in the major intracranial vascular structures. The sellar and pineal regions are normal. The craniovertebral junction is intact. The orbits, face, and skull base are without worrisome finding. IMPRESSION: 1. Acute nonhemorrhagic right mesencephalic infarct. 2. Mild chronic microvascular ischemia. 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 FINDINGS: MRA neck: There is no vessel occlusion or flow-limiting stenosis. There is no NASCET-quantifiable cervical internal carotid artery stenosis. Flow is antegrade in both vertebral arteries. MRA [place]: There is no vessel occlusion, flow-limiting stenosis, or aneurysm. IMPRESSION: Negative intra- and extracranial MRAs. 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 FINDINGS: MRA neck: There is no vessel occlusion or flow-limiting stenosis. There is no NASCET-quantifiable cervical internal carotid artery stenosis. Flow is antegrade in both vertebral arteries. MRA [place]: There is no vessel occlusion, flow-limiting stenosis, or aneurysm. IMPRESSION: Negative intra- and extracranial MRAs. 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 FINDINGS: MRA neck: There is no vessel occlusion or flow-limiting stenosis. There is no NASCET-quantifiable cervical internal carotid artery stenosis. Flow is antegrade in both vertebral arteries. MRA [place]: There is no vessel occlusion, flow-limiting stenosis, or aneurysm. IMPRESSION: Negative intra- and extracranial MRAs. 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 FINDINGS: MRA neck: There is no vessel occlusion or flow-limiting stenosis. There is no NASCET-quantifiable cervical internal carotid artery stenosis. Flow is antegrade in both vertebral arteries. MRA [place]: There is no vessel occlusion, flow-limiting stenosis, or aneurysm. IMPRESSION: Negative intra- and extracranial MRAs. Signed: Kalia Nelson MD Report Verified Date/Time: 10/14/2017 10:12:21 Reading Location: [address] Neuro Reading Room /Free T4 If Indicated (10/14/2017 2:54 AM) Component Value Ref Range TSH 1.12 0.35 - 4.94 uIU/mL Specimen Performing Laboratory Blood [address] [address] Hemoglobin A1c (10/14/2017 2:54 AM) Component Value Ref Range Hemoglobin A1C 5.7 4.3 - 6.1 % Specimen Performing Laboratory Blood [address] [address] Vitamin B12 (10/14/2017 2:54 AM) Component Value Ref Range Vitamin B12 488 213 - 816 pg/mL Specimen Performing Laboratory Blood [address] [address] Fasting lipid panel (10/14/2017 2:54 AM) Component Value Ref Range Triglycerides 74 mg/dL Cholesterol 99 mg/dL HDL 49 mg/dL LDL Calculated 35 mg/dL Specimen Performing Laboratory Blood [address] [address] Narrative Triglyceride Reference Range: Low Risk <150 [id number] High Risk 200-499 Very High Risk>=500 Cholesterol Reference Range: Low Risk <200 [id number] High Risk>240 HDL Cholesterol Reference Range: Low Risk >=60 High Risk <40 LDL Cholesterol Reference Range: Optimal<100 Near [id number] Very High >=190 Fasting XR humerus 2 views left (2017 10:16 PM) Specimen Performing Laboratory [facility] Narrative FINAL REPORT Left humerus. Clinical history: Fracture. COMPARISON STUDY: None available. FINDINGS: Two views of the left humerus demonstrate a mildly displaced fracture through the surgical neck with marked humeral shortening. Some comminution may be present. IMPRESSION: Proximal humeral fracture. Signed: Bobby Moore MD Report Verified Date/Time:2017 23:06:31 Reading Location: [facility] [id number] Consult Reading Room Procedure Note Interface, External Ris In - 2017 11:08 PM LAYOUT MAN FINAL REPORT Left humerus. Clinical history: Fracture. COMPARISON STUDY: None available. FINDINGS: Two views of the left humerus demonstrate a mildly displaced fracture through the surgical neck with marked humeral shortening. Some comminution may be present. IMPRESSION: Proximal humeral fracture. Signed: Bobby Moore MD Report Verified Date/Time: 2017 23:06:31 Reading Location: [facility] B1 [id number] Consult Reading Room aPTT (2017 3:49 PM) Component Value Ref Range PTT 33.1 22.5 - 36.0 seconds Specimen Performing Laboratory Blood [address] [address] Prothrombin time/INR (2017 3:49 PM) Component Value Ref Range Protime 14.4 11.7 - 14.7 seconds INR 1.1 <=5.9 Specimen Performing Laboratory Blood [address] [address] Narrative RECOMMENDED COUMADIN/WARFARIN INR THERAPY RANGES STANDARD DOSE: 2.0 - 3.0 Includes: PROPHYLAXIS for venous thrombosis, systemic embolization; TREATMENT for venous thrombosis and/or pulmonary embolus. HIGH RISK: Target INR is 2.5-3.5 for patients with mechanical heart valves. after 08/27/2017
--- OUTSIDE RECORDS SUMMARY | 2018-08-28 08:39 | XMS REPORT ---
:1930 Author Organization [facility] Address [address] [place] [address] [address]. [address] [place] [address] Care Team Providers Name Role Phone STEFANIE VELEZ Unavailable Unavailable Problems This patient has no known problems. Allergies, Adverse Reactions, Alerts This patient has no known allergies or adverse reactions. Medications This patient has no known medications. Results Test Description Test Time Test Comments Text Results Atomic Results Result Comments POCT-GLUCOSE METER 2017-10-25 17:29:00 Test Item Value Reference Range Comments POC-GLUCOSE METER (BEAKER) (test 115 mg/dL 70-110 TESTED AT [address] rncq=3793) [place] [id number] POCT-GLUCOSE [id number] 12:26:00 Test Item Value Reference Range Comments POC-GLUCOSE METER (BEAKER) 111 mg/dL 70-110 TESTED AT [address] (test rfwi=3793) [place] [address] POCT-GLUCOSE [id number] 08:15:00 Test Item Value Reference Range Comments POC-GLUCOSE METER (BEAKER) 105 mg/dL 70-110 TESTED AT [address] (test yrtx=8851) [place] [address] BASIC METABOLIC [id number] 06:20:00 Test Item Value Reference Range Comments SODIUM (BEAKER) (test 136 meq/L 136-145 daif=194) POTASSIUM (BEAKER) (test 4.0 meq/L 3.5-5.1 xnjs=020) CHLORIDE (BEAKER) (test 100 meq/L 98-107 axyi=255) CO2 (BEAKER) (test 26 meq/L 22-29 yzmz=681) BLOOD UREA NITROGEN 6 mg/dL 7-21 (BEAKER) (test gcxz=629) CREATININE (BEAKER) (test 0.70 mg/dL 0.57-1.25 ncxi=018) GLUCOSE RANDOM (BEAKER) 90 mg/dL 70-105 (test gejr=806) CALCIUM (BEAKER) (test 8.7 mg/dL 8.4-10.2 gtrg=337) EGFR (BEAKER) (test 79 mL/min/1.73 sq m ESTIMATED GFR IS NOT lcjx=7425) ACCURATE CREATININE CLEARANCE IN PREDICTING GLOMERULAR FILTRATION RATE. ESTIMATED GFR IS NOT APPLICABLE FOR DIALYSIS PATIENTS. CBC W/PLT COUNT & AUTO [id number] 06:12:00 Test Item Value Reference Range Comments WHITE BLOOD CELL COUNT (BEAKER) (test zfqx=999) 10.9 K/ L 3.5-10.5 RED BLOOD CELL COUNT (BEAKER) (test wcff=173) 2.41 M/ L 3.93-5.22 HEMOGLOBIN (BEAKER) (test lyed=164) 8.0 GM/DL 11.2-15.7 HEMATOCRIT (BEAKER) (test oris=630) 23.4 % 34.1-44.9 MEAN CORPUSCULAR VOLUME (BEAKER) (test qkap=754) 97.1 fL 79.4-94.8 MEAN CORPUSCULAR HEMOGLOBIN (BEAKER) (test 33.2 pg 25.6-32.2 asdg=167) MEAN CORPUSCULAR HEMOGLOBIN CONC (BEAKER) (test 34.2 GM/DL 32.2-35.5 baus=535) RED CELL DISTRIBUTION WIDTH (BEAKER) (test 14.1 % 11.7-14.4 mxte=008) PLATELET COUNT (BEAKER) (test cpxk=489) 605 K/CU MM 150-450 MEAN PLATELET VOLUME (BEAKER) (test uwzn=971) 9.3 fL 9.4-12.3 NUCLEATED RED BLOOD CELLS (BEAKER) (test 0 /100 WBC 0-0 gvzh=215) NEUTROPHILS RELATIVE PERCENT (BEAKER) (test 59 % gkys=769) LYMPHOCYTES RELATIVE PERCENT (BEAKER) (test 27 % xnmh=622) MONOCYTES RELATIVE PERCENT (BEAKER) (test 11 % wmrn=724) EOSINOPHILS RELATIVE PERCENT (BEAKER) (test 3 % ezds=013) BASOPHILS RELATIVE PERCENT (BEAKER) (test 0 % ivzp=912) NEUTROPHILS ABSOLUTE COUNT (BEAKER) (test 6.44 K/ L 1.56-6.13 tkmk=953) LYMPHOCYTES ABSOLUTE COUNT (BEAKER) (test 2.92 K/ L 1.18-3.74 ikov=672) MONOCYTES ABSOLUTE COUNT (BEAKER) (test 1.18 K/ L 0.24-0.36 cehk=209) EOSINOPHILS ABSOLUTE COUNT (BEAKER) (test 0.31 K/ L 0.04-0.36 eomo=212) BASOPHILS ABSOLUTE COUNT (BEAKER) (test 0.04 K/ L 0.01-0.08 banj=128) IMMATURE GRANULOCYTES-RELATIVE PERCENT (BEAKER) 0 % 0-1 (test sduz=2344) POCT-GLUCOSE [id number] 21:12:00 Test Item Value Reference Range Comments POC-GLUCOSE METER (BEAKER) 142 mg/dL 70-110 TESTED AT [address] (test ilne=0453) [place] [address] POCT-GLUCOSE [id number] 16:03:00 Test Item Value Reference Range Comments POC-GLUCOSE METER (BEAKER) 168 mg/dL 70-110 TESTED AT [address] (test qipr=2739) [facility] [address] POCT-GLUCOSE [id number] 11:54:00 Test Item Value Reference Range Comments POC-GLUCOSE METER (BEAKER) 127 mg/dL 70-110 TESTED AT [address] (test mevb=2927) [facility] [address] BASIC METABOLIC [id number] 08:39:00 Test Item Value Reference Range Comments SODIUM (BEAKER) (test 133 meq/L 136-145 dpey=551) POTASSIUM (BEAKER) (test 3.6 meq/L 3.5-5.1 kxwj=381) CHLORIDE (BEAKER) (test 98 meq/L 98-107 siuh=080) CO2 (BEAKER) (test 26 meq/L 22-29 zzrq=745) BLOOD UREA NITROGEN 7 mg/dL 7-21 (BEAKER) (test dwtn=483) CREATININE (BEAKER) (test 0.67 mg/dL 0.57-1.25 nism=196) GLUCOSE RANDOM (BEAKER) 78 mg/dL 70-105 (test dutu=152) CALCIUM (BEAKER) (test 8.2 mg/dL 8.4-10.2 moha=947) EGFR (BEAKER) (test 83 mL/min/1.73 sq m ESTIMATED GFR IS NOT mcoy=8048) ACCURATE CREATININE CLEARANCE IN PREDICTING GLOMERULAR FILTRATION RATE. ESTIMATED GFR IS NOT APPLICABLE FOR DIALYSIS PATIENTS. CBC W/PLT COUNT & AUTO [id number] 08:37:00 Test Item Value Reference Range Comments WHITE BLOOD CELL COUNT (BEAKER) (test wlbj=222) 10.9 K/ L 3.5-10.5 RED BLOOD CELL COUNT (BEAKER) (test yono=953) 2.23 M/ L 3.93-5.22 HEMOGLOBIN (BEAKER) (test bhww=358) 7.3 GM/DL 11.2-15.7 HEMATOCRIT (BEAKER) (test fvtd=457) 21.4 % 34.1-44.9 MEAN CORPUSCULAR VOLUME (BEAKER) (test eqhy=874) 96.0 fL 79.4-94.8 MEAN CORPUSCULAR HEMOGLOBIN (BEAKER) (test 32.7 pg 25.6-32.2 hoib=429) MEAN CORPUSCULAR HEMOGLOBIN CONC (BEAKER) (test 34.1 GM/DL 32.2-35.5 tjgw=697) RED CELL DISTRIBUTION WIDTH (BEAKER) (test 13.9 % 11.7-14.4 xcti=301) PLATELET COUNT (BEAKER) (test veyi=196) 514 K/CU MM 150-450 MEAN PLATELET VOLUME (BEAKER) (test kyjn=239) 9.5 fL 9.4-12.3 NUCLEATED RED BLOOD CELLS (BEAKER) (test 0 /100 WBC 0-0 khkq=408) NEUTROPHILS RELATIVE PERCENT (BEAKER) (test 66 % tgif=286) LYMPHOCYTES RELATIVE PERCENT (BEAKER) (test 21 % pxcw=533) MONOCYTES RELATIVE PERCENT (BEAKER) (test 11 % biam=342) EOSINOPHILS RELATIVE PERCENT (BEAKER) (test 2 % vsbe=729) BASOPHILS RELATIVE PERCENT (BEAKER) (test 0 % vvga=820) NEUTROPHILS ABSOLUTE COUNT (BEAKER) (test 7.18 K/ L 1.56-6.13 brtv=208) LYMPHOCYTES ABSOLUTE COUNT (BEAKER) (test 2.24 K/ L 1.18-3.74 tzio=996) MONOCYTES ABSOLUTE COUNT (BEAKER) (test 1.21 K/ L 0.24-0.36 xnhp=490) EOSINOPHILS ABSOLUTE COUNT (BEAKER) (test 0.23 K/ L 0.04-0.36 lksr=636) BASOPHILS ABSOLUTE COUNT (BEAKER) (test 0.03 K/ L 0.01-0.08 itml=489) IMMATURE GRANULOCYTES-RELATIVE PERCENT (BEAKER) 0 % 0-1 (test mlio=6201) POCT-GLUCOSE [id number] 08:33:00 Test Item Value Reference Range Comments POC-GLUCOSE METER (BEAKER) 112 mg/dL 70-110 TESTED AT [address] (test nbxr=5199) [place] [id number] POCT-GLUCOSE [id number] 21:53:00 Test Item Value Reference Range Comments POC-GLUCOSE METER (BEAKER) 113 mg/dL 70-110 TESTED AT [address] (test ocls=6056) [place] [address] POCT-GLUCOSE [id number] 17:39:00 Test Item Value Reference Range Comments POC-GLUCOSE METER (BEAKER) 134 mg/dL 70-110 TESTED AT [address] (test zexv=9707) [place] [address] POCT-GLUCOSE [id number] 12:40:00 Test Item Value Reference Range Comments POC-GLUCOSE METER (BEAKER) 137 mg/dL 70-110 TESTED AT [address] (test rkhf=3779) [place] [address] POCT-GLUCOSE [id number] 07:41:00 Test Item Value Reference Range Comments POC-GLUCOSE METER (BEAKER) 117 mg/dL 70-110 TESTED AT [address] (test wbqd=2661) [place] [address] CBC W/PLT COUNT & AUTO [id number] 06:05:00 Test Item Value Reference Range Comments WHITE BLOOD CELL COUNT (BEAKER) (test hncg=031) 14.2 K/ L 3.5-10.5 RED BLOOD CELL COUNT (BEAKER) (test yglj=034) 2.49 M/ L 3.93-5.22 HEMOGLOBIN (BEAKER) (test svbl=563) 8.3 GM/DL 11.2-15.7 HEMATOCRIT (BEAKER) (test nqbn=914) 24.6 % 34.1-44.9 MEAN CORPUSCULAR VOLUME (BEAKER) (test lyic=729) 98.8 fL 79.4-94.8 MEAN CORPUSCULAR HEMOGLOBIN (BEAKER) (test 33.3 pg 25.6-32.2 abuj=019) MEAN CORPUSCULAR HEMOGLOBIN CONC (BEAKER) (test 33.7 GM/DL 32.2-35.5 omjp=110) RED CELL DISTRIBUTION WIDTH (BEAKER) (test 14.1 % 11.7-14.4 mvdc=615) PLATELET COUNT (BEAKER) (test mygc=418) 483 K/CU MM 150-450 MEAN PLATELET VOLUME (BEAKER) (test dldu=295) 9.6 fL 9.4-12.3 NUCLEATED RED BLOOD CELLS (BEAKER) (test 0 /100 WBC 0-0 czqf=593) NEUTROPHILS RELATIVE PERCENT (BEAKER) (test 65 % coyp=075) LYMPHOCYTES RELATIVE PERCENT (BEAKER) (test 22 % lnnl=473) MONOCYTES RELATIVE PERCENT (BEAKER) (test 11 % yscs=603) EOSINOPHILS RELATIVE PERCENT (BEAKER) (test 2 % hvdx=805) BASOPHILS RELATIVE PERCENT (BEAKER) (test 0 % okyl=840) NEUTROPHILS ABSOLUTE COUNT (BEAKER) (test 9.22 K/ L 1.56-6.13 zjmb=042) LYMPHOCYTES ABSOLUTE COUNT (BEAKER) (test 3.14 K/ L 1.18-3.74 sdpy=252) MONOCYTES ABSOLUTE COUNT (BEAKER) (test 1.49 K/ L 0.24-0.36 eryl=796) EOSINOPHILS ABSOLUTE COUNT (BEAKER) (test 0.23 K/ L 0.04-0.36 vldo=963) BASOPHILS ABSOLUTE COUNT (BEAKER) (test 0.03 K/ L 0.01-0.08 gbov=973) IMMATURE GRANULOCYTES-RELATIVE PERCENT (BEAKER) 0 % 0-1 (test afvb=8335) BASIC METABOLIC [id number] 06:01:00 Test Item Value Reference Range Comments SODIUM (BEAKER) (test 133 meq/L 136-145 xehx=591) POTASSIUM (BEAKER) (test 4.0 meq/L 3.5-5.1 xbur=624) CHLORIDE (BEAKER) (test 98 meq/L 98-107 hgpb=500) CO2 (BEAKER) (test 26 meq/L 22-29 szfg=904) BLOOD UREA NITROGEN 9 mg/dL 7-21 (BEAKER) (test rrvr=898) CREATININE (BEAKER) (test 0.71 mg/dL 0.57-1.25 xvdk=870) GLUCOSE RANDOM (BEAKER) 89 mg/dL 70-105 (test pwbw=254) CALCIUM (BEAKER) (test 8.7 mg/dL 8.4-10.2 afgz=916) EGFR (BEAKER) (test 78 mL/min/1.73 sq m ESTIMATED GFR IS NOT hvea=3076) ACCURATE CREATININE CLEARANCE IN PREDICTING GLOMERULAR FILTRATION RATE. ESTIMATED GFR IS NOT APPLICABLE FOR DIALYSIS PATIENTS. POCT-GLUCOSE [id number] 21:59:00 Test Item Value Reference Range Comments POC-GLUCOSE METER (BEAKER) 137 mg/dL 70-110 TESTED AT [address] (test quod=4353) [place] [address] POCT-GLUCOSE [id number] 16:36:00 Test Item Value Reference Range Comments POC-GLUCOSE METER (BEAKER) 135 mg/dL 70-110 TESTED AT [address] (test pwjt=5252) [place] [address] POCT-GLUCOSE [id number] 12:08:00 Test Item Value Reference Range Comments POC-GLUCOSE METER (BEAKER) 147 mg/dL 70-110 TESTED AT [address] (test ysua=1820) [place] [address] POCT-GLUCOSE [id number] 08:39:00 Test Item Value Reference Range Comments POC-GLUCOSE METER (BEAKER) 107 mg/dL 70-110 TESTED AT [address] (test vpnb=4402) [facility] [address] BASIC METABOLIC [id number] 06:35:00 Test Item Value Reference Range Comments SODIUM (BEAKER) (test 132 meq/L 136-145 mmki=669) POTASSIUM (BEAKER) (test 4.0 meq/L 3.5-5.1 pgsw=962) CHLORIDE (BEAKER) (test 98 meq/L 98-107 xcyh=608) CO2 (BEAKER) (test 27 meq/L 22-29 ackp=893) BLOOD UREA NITROGEN 8 mg/dL 7-21 (BEAKER) (test lvbi=650) CREATININE (BEAKER) (test 0.71 mg/dL 0.57-1.25 wfbm=738) GLUCOSE RANDOM (BEAKER) 93 mg/dL 70-105 (test uqml=243) CALCIUM (BEAKER) (test 8.6 mg/dL 8.4-10.2 omsw=125) EGFR (BEAKER) (test 78 mL/min/1.73 sq m ESTIMATED GFR IS NOT euaw=4462) ACCURATE CREATININE CLEARANCE IN PREDICTING GLOMERULAR FILTRATION RATE. ESTIMATED GFR IS NOT APPLICABLE FOR DIALYSIS PATIENTS. CBC W/PLT COUNT & AUTO [id number] 06:06:00 Test Item Value Reference Range Comments WHITE BLOOD CELL COUNT (BEAKER) (test wgyv=616) 14.6 K/ L 3.5-10.5 RED BLOOD CELL COUNT (BEAKER) (test mbni=722) 2.55 M/ L 3.93-5.22 HEMOGLOBIN (BEAKER) (test niwj=395) 8.4 GM/DL 11.2-15.7 HEMATOCRIT (BEAKER) (test hnef=213) 25.1 % 34.1-44.9 MEAN CORPUSCULAR VOLUME (BEAKER) (test qxrk=517) 98.4 fL 79.4-94.8 MEAN CORPUSCULAR HEMOGLOBIN (BEAKER) (test 32.9 pg 25.6-32.2 gixo=320) MEAN CORPUSCULAR HEMOGLOBIN CONC (BEAKER) (test 33.5 GM/DL 32.2-35.5 czpy=170) RED CELL DISTRIBUTION WIDTH (BEAKER) (test 14.3 % 11.7-14.4 liag=542) PLATELET COUNT (BEAKER) (test qzzf=555) 451 K/CU MM 150-450 MEAN PLATELET VOLUME (BEAKER) (test unaq=930) 9.6 fL 9.4-12.3 NUCLEATED RED BLOOD CELLS (BEAKER) (test 0 /100 WBC 0-0 apju=716) NEUTROPHILS RELATIVE PERCENT (BEAKER) (test 63 % habd=796) LYMPHOCYTES RELATIVE PERCENT (BEAKER) (test 21 % qhvv=964) MONOCYTES RELATIVE PERCENT (BEAKER) (test 13 % ekcu=133) EOSINOPHILS RELATIVE PERCENT (BEAKER) (test 2 % znqd=157) BASOPHILS RELATIVE PERCENT (BEAKER) (test 0 % wgza=957) NEUTROPHILS ABSOLUTE COUNT (BEAKER) (test 9.20 K/ L 1.56-6.13 zhhm=214) LYMPHOCYTES ABSOLUTE COUNT (BEAKER) (test 3.13 K/ L 1.18-3.74 yuwv=771) MONOCYTES ABSOLUTE COUNT (BEAKER) (test 1.95 K/ L 0.24-0.36 qmsu=110) EOSINOPHILS ABSOLUTE COUNT (BEAKER) (test 0.23 K/ L 0.04-0.36 ujka=437) BASOPHILS ABSOLUTE COUNT (BEAKER) (test 0.04 K/ L 0.01-0.08 vevz=821) IMMATURE GRANULOCYTES-RELATIVE PERCENT (BEAKER) 0 % 0-1 (test oavl=6994) POCT-GLUCOSE [id number] 21:21:00 Test Item Value Reference Range Comments POC-GLUCOSE METER (BEAKER) 140 mg/dL 70-110 TESTED AT [address] (test crft=0453) [place] [address] POCT-GLUCOSE [id number] 17:23:00 Test Item Value Reference Range Comments POC-GLUCOSE METER (BEAKER) 156 mg/dL 70-110 TESTED AT [address] (test cnge=0599) [place] [id number] CBC W/PLT COUNT & AUTO [id number] 12:14:00 Test Item Value Reference Range Comments WHITE BLOOD CELL COUNT (BEAKER) (test pmyn=831) 11.5 K/ L 3.5-10.5 RED BLOOD CELL COUNT (BEAKER) (test rkxy=636) 2.28 M/ L 3.93-5.22 HEMOGLOBIN (BEAKER) (test rlnx=474) 7.7 GM/DL 11.2-15.7 HEMATOCRIT (BEAKER) (test xhqb=498) 22.5 % 34.1-44.9 MEAN CORPUSCULAR VOLUME (BEAKER) (test bskq=223) 98.7 fL 79.4-94.8 MEAN CORPUSCULAR HEMOGLOBIN (BEAKER) (test 33.8 pg 25.6-32.2 kwos=879) MEAN CORPUSCULAR HEMOGLOBIN CONC (BEAKER) (test 34.2 GM/DL 32.2-35.5 vewr=457) RED CELL DISTRIBUTION WIDTH (BEAKER) (test 14.2 % 11.7-14.4 ruxi=374) PLATELET COUNT (BEAKER) (test jcdg=692) 378 K/CU MM 150-450 MEAN PLATELET VOLUME (BEAKER) (test ennd=860) 9.4 fL 9.4-12.3 NUCLEATED RED BLOOD CELLS (BEAKER) (test 0 /100 WBC 0-0 nfds=219) NEUTROPHILS RELATIVE PERCENT (BEAKER) (test 65 % tmkb=716) LYMPHOCYTES RELATIVE PERCENT (BEAKER) (test 19 % xhfc=342) MONOCYTES RELATIVE PERCENT (BEAKER) (test 13 % bzqa=970) EOSINOPHILS RELATIVE PERCENT (BEAKER) (test 3 % ioey=080) BASOPHILS RELATIVE PERCENT (BEAKER) (test 0 % vzvr=445) NEUTROPHILS ABSOLUTE COUNT (BEAKER) (test 7.49 K/ L 1.56-6.13 cwqe=917) LYMPHOCYTES ABSOLUTE COUNT (BEAKER) (test 2.17 K/ L 1.18-3.74 tzkj=958) MONOCYTES ABSOLUTE COUNT (BEAKER) (test 1.49 K/ L 0.24-0.36 addu=667) EOSINOPHILS ABSOLUTE COUNT (BEAKER) (test 0.32 K/ L 0.04-0.36 uyun=428) BASOPHILS ABSOLUTE COUNT (BEAKER) (test 0.02 K/ L 0.01-0.08 jtrw=141) IMMATURE GRANULOCYTES-RELATIVE PERCENT (BEAKER) 0 % 0-1 (test ojze=2832) POCT-GLUCOSE [id number] 12:11:00 Test Item Value Reference Range Comments POC-GLUCOSE METER (BEAKER) 125 mg/dL 70-[address] [facility] [address] [place] [address] (test hzhb=6268) [facility] [address] BASIC METABOLIC [id number] 11:28:00 Test Item Value Reference Range Comments SODIUM (BEAKER) (test 131 meq/L 136-145 dfgp=135) POTASSIUM (BEAKER) (test 3.7 meq/L 3.5-5.1 zakf=951) CHLORIDE (BEAKER) (test 97 meq/L 98-107 cbjf=411) CO2 (BEAKER) (test 28 meq/L 22-29 cacf=650) BLOOD UREA NITROGEN 10 mg/dL 7-21 (BEAKER) (test utgv=184) CREATININE (BEAKER) (test 0.73 mg/dL 0.57-1.25 xuzp=800) GLUCOSE RANDOM (BEAKER) 111 mg/dL 70-105 (test buhq=604) CALCIUM (BEAKER) (test 8.3 mg/dL 8.4-10.2 bzrm=856) EGFR (BEAKER) (test 75 mL/min/1.73 sq m ESTIMATED GFR IS NOT pttg=7775) ACCURATE CREATININE CLEARANCE IN PREDICTING GLOMERULAR FILTRATION RATE. ESTIMATED GFR IS NOT APPLICABLE FOR DIALYSIS PATIENTS. POCT-GLUCOSE [id number] 07:46:00 Test Item Value Reference Range Comments POC-GLUCOSE METER (BEAKER) 108 mg/dL 70-110 TESTED AT [address] (test cjcg=4408) [facility] [address] POCT-GLUCOSE [id number] 21:35:00 Test Item Value Reference Range Comments POC-GLUCOSE METER (BEAKER) 285 mg/dL 70-110 TESTED AT [address] (test qtyi=1751) [place] [id number] POCT-GLUCOSE [id number] 16:40:00 Test Item Value Reference Range Comments POC-GLUCOSE METER (BEAKER) 130 mg/dL 70-110 TESTED AT [address] (test ekut=2091) [place] [address] POCT-GLUCOSE [id number] 14:02:00 Test Item Value Reference Range Comments POC-GLUCOSE METER (BEAKER) 107 mg/dL 70-110 TESTED AT [address] (test aagv=2789) [place] [address] POCT-GLUCOSE [id number] 11:08:00 Test Item Value Reference Range Comments POC-GLUCOSE METER (BEAKER) 257 mg/dL 70-110 TESTED AT [address] (test mwuk=1978) [place] [id number] POCT-GLUCOSE [id number] 08:15:00 Test Item Value Reference Range Comments POC-GLUCOSE METER (BEAKER) 178 mg/dL 70-110 TESTED AT [address] (test vviy=1818) [place] [id number] BASIC METABOLIC [id number] 05:22:00 Test Item Value Reference Range Comments SODIUM (BEAKER) (test 131 meq/L 136-145 ibqy=084) POTASSIUM (BEAKER) (test 4.0 meq/L 3.5-5.1 fkye=520) CHLORIDE (BEAKER) (test 98 meq/L 98-107 ynxp=438) CO2 (BEAKER) (test 26 meq/L 22-29 jwdv=465) BLOOD UREA NITROGEN 10 mg/dL 7-21 (BEAKER) (test ekxh=026) CREATININE (BEAKER) (test 0.71 mg/dL 0.57-1.25 ezov=640) GLUCOSE RANDOM (BEAKER) 165 mg/dL 70-105 (test njyl=141) CALCIUM (BEAKER) (test 8.2 mg/dL 8.4-10.2 pxxf=663) EGFR (BEAKER) (test 78 mL/min/1.73 sq m ESTIMATED GFR IS NOT samw=4228) ACCURATE CREATININE CLEARANCE IN PREDICTING GLOMERULAR FILTRATION RATE. ESTIMATED GFR IS NOT APPLICABLE FOR DIALYSIS PATIENTS. CBC W/PLT COUNT & AUTO [id number] 05:06:00 Test Item Value Reference Range Comments WHITE BLOOD CELL COUNT (BEAKER) (test asrc=917) 9.5 K/ L 3.5-10.5 RED BLOOD CELL COUNT (BEAKER) (test rwar=538) 2.47 M/ L 3.93-5.22 HEMOGLOBIN (BEAKER) (test qbkn=589) 8.1 GM/DL 11.2-15.7 HEMATOCRIT (BEAKER) (test cbfy=751) 24.0 % 34.1-44.9 MEAN CORPUSCULAR VOLUME (BEAKER) (test amuj=706) 97.2 fL 79.4-94.8 MEAN CORPUSCULAR HEMOGLOBIN (BEAKER) (test 32.8 pg 25.6-32.2 rgzj=498) MEAN CORPUSCULAR HEMOGLOBIN CONC (BEAKER) (test 33.8 GM/DL 32.2-35.5 pkkm=237) RED CELL DISTRIBUTION WIDTH (BEAKER) (test 13.5 % 11.7-14.4 qwpn=252) PLATELET COUNT (BEAKER) (test iowg=000) 324 K/CU MM 150-450 MEAN PLATELET VOLUME (BEAKER) (test ddls=837) 9.4 fL 9.4-12.3 NUCLEATED RED BLOOD CELLS (BEAKER) (test 0 /100 WBC 0-0 bqmk=170) NEUTROPHILS RELATIVE PERCENT (BEAKER) (test 84 % fsuo=523) LYMPHOCYTES RELATIVE PERCENT (BEAKER) (test 9 % qzkq=824) MONOCYTES RELATIVE PERCENT (BEAKER) (test 8 % xvwg=839) EOSINOPHILS RELATIVE PERCENT (BEAKER) (test 0 % zwrs=320) BASOPHILS RELATIVE PERCENT (BEAKER) (test 0 % anpy=598) NEUTROPHILS ABSOLUTE COUNT (BEAKER) (test 7.96 K/ L 1.56-6.13 ezex=629) LYMPHOCYTES ABSOLUTE COUNT (BEAKER) (test 0.83 K/ L 1.18-3.74 nxth=090) MONOCYTES ABSOLUTE COUNT (BEAKER) (test 0.71 K/ L 0.24-0.36 hdmk=035) EOSINOPHILS ABSOLUTE COUNT (BEAKER) (test 0.00 K/ L 0.04-0.36 euku=249) BASOPHILS ABSOLUTE COUNT (BEAKER) (test 0.00 K/ L 0.01-0.08 ybqn=587) IMMATURE GRANULOCYTES-RELATIVE PERCENT (BEAKER) 0 % 0-1 (test sokb=7309) CT, PELVIS, WO [id number] 21:24:00Patient with left hip pain without evidence of fracture on XR. Concern for femoral neck fracture.FINAL REPORT CT, PELVIS, WO CONTRAST INDICATION: Pelvis [...] dose to as low as reasonably achievable. FINDINGS:Osseous structures:Pelvic bones are intact. Acetabular brumfield andcolumns are preserved. Inferior and superior pubic rami are intact. The symphyseal interval is preserved. Degenerative changes are present bilaterally at the sacroiliac joints. Sacral elements are intact. The femoral heads, necks and proximal shafts are intact. No joint effusion is present. Soft tissue structures:Mild atrophic changes are noted in the pelvic [...] in the pelvis. Signed: JR Mason Robert MDReport Verified Date/Time: 10/19/2017 21:24:34 Reading Location: [facility] Transitional Reading Room POCT-GLUCOSE [id number] 21:23:00 Test Item Value Reference Range Comments POC-GLUCOSE METER (BEAKER) 172 mg/dL 70-[address] 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 The radiologist is not present during the procedure. Images are presented for interpretation at the completion of the procedure. Please refer to the procedure report for more details. Number of images obtained: 2 Fluoroscopy time: Not provided Signed: Sanford Bradley Verified Date/Time: 17:00:21 Reading Location: [address] Consult Reading Room RAD, PELVIS, 1 OR 2 [id number] 11:15:00Reason for exam:->Possible left femoral neck fractureShould this be performed at the bedside?->YesFINAL REPORT Radiograph of the pelvis and left hip Reason for exam: Possibleleft femoral neck fracture Comparison: No prior Discussion: No displaced fracture, or location is identified. Symphysis pubis is congruent. Bony mineralization is slightly decreased. Visualized soft tissues are unremarkable. Impressions: No fracture or dislocation is identified. Signed: Sanford Bradley Verified Date/Time: 10/19/2017 11:15:18 Reading Location: [facility] Radiology Reading Room RAD, HIP, 2 VIEWS, [id number] 11:15:00Reason for exam:->Possible left femoral neck fractureShould this be performed at the bedside?->YesFINAL REPORT Radiograph of the pelvis and left hip Reason for exam: Possibleleft femoral neck fracture Comparison: No prior Discussion: No displaced fracture, or location is identified. Symphysis pubis is congruent. Bony mineralization is slightly decreased. Visualized soft tissues are unremarkable. Impressions: No fracture or dislocation is identified. Signed: Sanford Bradley Verified Date/Time: 2016 11:15:18 Reading Location: [facility] Radiology Reading Room POCT-GLUCOSE [id number] 07:54:00 Test Item Value Reference Range Comments POC-GLUCOSE METER (BEAKER) 97 mg/dL 70-[address] [facility] [address] [place] [address] (test ezsv=5442) [facility] [address] BASIC METABOLIC [id number] 05:41:00 Test Item Value Reference Range Comments SODIUM (BEAKER) (test 135 meq/L 136-145 wzok=964) POTASSIUM (BEAKER) (test 3.7 meq/L 3.5-5.1 lqxp=801) CHLORIDE (BEAKER) (test 99 meq/L 98-107 lipl=796) CO2 (BEAKER) (test 27 meq/L 22-29 gxym=367) BLOOD UREA NITROGEN 10 mg/dL 7-21 (BEAKER) (test nltc=568) CREATININE (BEAKER) (test 0.72 mg/dL 0.57-1.25 duqx=888) GLUCOSE RANDOM (BEAKER) 99 mg/dL 70-105 (test gloz=184) CALCIUM (BEAKER) (test 9.0 mg/dL 8.4-10.2 ovrr=182) EGFR (BEAKER) (test 76 mL/min/1.73 sq m ESTIMATED GFR IS NOT ueqb=1413) ACCURATE CREATININE CLEARANCE IN PREDICTING GLOMERULAR FILTRATION RATE. ESTIMATED GFR IS NOT APPLICABLE FOR DIALYSIS PATIENTS. CBC W/PLT COUNT & AUTO [id number] 04:18:00 Test Item Value Reference Range Comments WHITE BLOOD CELL COUNT (BEAKER) (test ipho=830) 10.2 K/ L 3.5-10.5 RED BLOOD CELL COUNT (BEAKER) (test rtwg=280) 2.88 M/ L 3.93-5.22 HEMOGLOBIN (BEAKER) (test jiwl=279) 9.5 GM/DL 11.2-15.7 HEMATOCRIT (BEAKER) (test bfbg=856) 27.7 % 34.1-44.9 MEAN CORPUSCULAR VOLUME (BEAKER) (test eauj=948) 96.2 fL 79.4-94.8 MEAN CORPUSCULAR HEMOGLOBIN (BEAKER) (test 33.0 pg 25.6-32.2 ugmz=698) MEAN CORPUSCULAR HEMOGLOBIN CONC (BEAKER) (test 34.3 GM/DL 32.2-35.5 pcgp=964) RED CELL DISTRIBUTION WIDTH (BEAKER) (test 13.4 % 11.7-14.4 pitc=092) PLATELET COUNT (BEAKER) (test vgou=259) 306 K/CU MM 150-450 MEAN PLATELET VOLUME (BEAKER) (test ddnz=774) 9.7 fL 9.4-12.3 NUCLEATED RED BLOOD CELLS (BEAKER) (test 0 /100 WBC 0-0 yesi=039) NEUTROPHILS RELATIVE PERCENT (BEAKER) (test 56 % byua=497) LYMPHOCYTES RELATIVE PERCENT (BEAKER) (test 28 % smkw=407) MONOCYTES RELATIVE PERCENT (BEAKER) (test 13 % tlul=849) EOSINOPHILS RELATIVE PERCENT (BEAKER) (test 3 % hfgz=398) BASOPHILS RELATIVE PERCENT (BEAKER) (test 1 % tiuy=672) NEUTROPHILS ABSOLUTE COUNT (BEAKER) (test 5.71 K/ L 1.56-6.13 hwfr=833) LYMPHOCYTES ABSOLUTE COUNT (BEAKER) (test 2.83 K/ L 1.18-3.74 ejgf=037) MONOCYTES ABSOLUTE COUNT (BEAKER) (test 1.31 K/ L 0.24-0.36 sfzc=846) EOSINOPHILS ABSOLUTE COUNT (BEAKER) (test 0.25 K/ L 0.04-0.36 mmhv=901) BASOPHILS ABSOLUTE COUNT (BEAKER) (test 0.05 K/ L 0.01-0.08 wdai=557) IMMATURE GRANULOCYTES-RELATIVE PERCENT (BEAKER) 0 % 0-1 (test gpai=7112) POCT-GLUCOSE [id number] 20:19:00 Test Item Value Reference Range Comments POC-GLUCOSE METER (BEAKER) 131 mg/dL 70-110 TESTED AT [address] (test nmkg=3227) [facility] [address] POCT-GLUCOSE [id number] 18:09:00 Test Item Value Reference Range Comments POC-GLUCOSE METER (BEAKER) 138 mg/dL 70-110 TESTED AT [address] (test gqas=9731) [facility] [address] POCT-GLUCOSE [id number] 12:09:00 Test Item Value Reference Range Comments POC-GLUCOSE METER (BEAKER) 129 mg/dL 70-110 TESTED AT [address] (test soyl=6908) [place] [id number] POCT-GLUCOSE [id number] 08:26:00 Test Item Value Reference Range Comments POC-GLUCOSE METER (BEAKER) 103 mg/dL 70-110 TESTED AT [address] (test ehne=6275) [facility] [address] BASIC METABOLIC [id number] 05:48:00 Test Item Value Reference Range Comments SODIUM (BEAKER) (test 133 meq/L 136-145 gwxw=027) POTASSIUM (BEAKER) (test 3.8 meq/L 3.5-5.1 sncl=978) CHLORIDE (BEAKER) (test 100 meq/L 98-107 lahu=148) CO2 (BEAKER) (test 26 meq/L 22-29 yhvq=503) BLOOD UREA NITROGEN 13 mg/dL 7-21 (BEAKER) (test cegl=028) CREATININE (BEAKER) (test 0.73 mg/dL 0.57-1.25 qcrb=773) GLUCOSE RANDOM (BEAKER) 90 mg/dL 70-105 (test sinw=760) CALCIUM (BEAKER) (test 8.4 mg/dL 8.4-10.2 kdzp=433) EGFR (BEAKER) (test 75 mL/min/1.73 sq m ESTIMATED GFR IS NOT iivo=4885) ACCURATE CREATININE CLEARANCE IN PREDICTING GLOMERULAR FILTRATION RATE. ESTIMATED GFR IS NOT APPLICABLE FOR DIALYSIS PATIENTS. CBC W/PLT COUNT & AUTO [id number] 04:55:00 Test Item Value Reference Range Comments WHITE BLOOD CELL COUNT (BEAKER) (test bnpp=542) 10.1 K/ L 3.5-10.5 RED BLOOD CELL COUNT (BEAKER) (test zepa=885) 2.48 M/ L 3.93-5.22 HEMOGLOBIN (BEAKER) (test zuuu=945) 8.4 GM/DL 11.2-15.7 HEMATOCRIT (BEAKER) (test adxn=112) 24.0 % 34.1-44.9 MEAN CORPUSCULAR VOLUME (BEAKER) (test ommg=950) 96.8 fL 79.4-94.8 MEAN CORPUSCULAR HEMOGLOBIN (BEAKER) (test 33.9 pg 25.6-32.2 rjcu=033) MEAN CORPUSCULAR HEMOGLOBIN CONC (BEAKER) (test 35.0 GM/DL 32.2-35.5 vvtv=859) RED CELL DISTRIBUTION WIDTH (BEAKER) (test 13.2 % 11.7-14.4 nfws=300) PLATELET COUNT (BEAKER) (test sfwp=279) 236 K/CU MM 150-450 MEAN PLATELET VOLUME (BEAKER) (test ccxo=115) 10.8 fL 9.4-12.3 NUCLEATED RED BLOOD CELLS (BEAKER) (test 0 /100 WBC 0-0 orbt=867) NEUTROPHILS RELATIVE PERCENT (BEAKER) (test 59 % vzby=531) LYMPHOCYTES RELATIVE PERCENT (BEAKER) (test 24 % irzs=377) MONOCYTES RELATIVE PERCENT (BEAKER) (test 13 % qypu=772) EOSINOPHILS RELATIVE PERCENT (BEAKER) (test 3 % euxe=332) BASOPHILS RELATIVE PERCENT (BEAKER) (test 0 % yilf=011) NEUTROPHILS ABSOLUTE COUNT (BEAKER) (test 6.02 K/ L 1.56-6.13 toyc=246) LYMPHOCYTES ABSOLUTE COUNT (BEAKER) (test 2.45 K/ L 1.18-3.74 iybj=858) MONOCYTES ABSOLUTE COUNT (BEAKER) (test 1.36 K/ L 0.24-0.36 tmff=282) EOSINOPHILS ABSOLUTE COUNT (BEAKER) (test 0.25 K/ L 0.04-0.36 jgez=860) BASOPHILS ABSOLUTE COUNT (BEAKER) (test 0.04 K/ L 0.01-0.08 xiep=577) IMMATURE GRANULOCYTES-RELATIVE PERCENT (BEAKER) 0 % 0-1 (test tsrn=1982) POCT-GLUCOSE [id number] 20:27:00 Test Item Value Reference Range Comments POC-GLUCOSE METER (BEAKER) 140 mg/dL 70-110 TESTED AT [address] (test aqvj=0475) [place] [address] POCT-GLUCOSE [id number] 16:33:00 Test Item Value Reference Range Comments POC-GLUCOSE METER (BEAKER) 152 mg/dL 70-110 TESTED AT [address] (test iykg=5497) [place] [address] BASIC METABOLIC [id number] 16:23:00 Test Item Value Reference Range Comments SODIUM (BEAKER) (test 133 meq/L 136-145 lwnx=005) POTASSIUM (BEAKER) (test 3.9 meq/L 3.5-5.1 Specimen slightly uyft=205) hemolyzed CHLORIDE (BEAKER) (test 104 meq/L 98-107 klfy=987) CO2 (BEAKER) (test 23 meq/L 22-29 mgku=456) BLOOD UREA NITROGEN 17 mg/dL 7-21 (BEAKER) (test beyv=307) CREATININE (BEAKER) (test 0.73 mg/dL 0.57-1.25 Specimen slightly yqhm=690) hemolyzed GLUCOSE RANDOM (BEAKER) 137 mg/dL 70-105 (test rnhh=781) CALCIUM (BEAKER) (test 7.3 mg/dL 8.4-10.2 begy=033) EGFR (BEAKER) (test 75 mL/min/1.73 sq m ESTIMATED GFR IS NOT dlvm=2913) ACCURATE CREATININE CLEARANCE IN PREDICTING GLOMERULAR FILTRATION RATE. ESTIMATED GFR IS NOT APPLICABLE FOR DIALYSIS PATIENTS. POCT-GLUCOSE [id number] 11:24:00 Test Item Value Reference Range Comments POC-GLUCOSE METER (BEAKER) 146 mg/dL 70-110 TESTED AT [address] (test ewrv=2673) [place] [address] OSMOLALITY, [id number] 09:41:00 Test Item Value Reference Range Comments OSMOLALITY, SERUM (BEAKER) (test jhrx=528) 276 mOsm/kg 275-295 BASIC METABOLIC [id number] 08:57:00 Test Item Value Reference Range Comments SODIUM (BEAKER) (test 129 meq/L 136-145 nabz=501) POTASSIUM (BEAKER) (test 4.1 meq/L 3.5-5.1 jzqx=885) CHLORIDE (BEAKER) (test 96 meq/L 98-107 twcl=748) CO2 (BEAKER) (test 26 meq/L 22-29 aogf=429) BLOOD UREA NITROGEN 18 mg/dL 7-21 (BEAKER) (test ijyz=672) CREATININE (BEAKER) (test 0.74 mg/dL 0.57-1.25 owtx=963) GLUCOSE RANDOM (BEAKER) 91 mg/dL 70-105 (test spyd=101) CALCIUM (BEAKER) (test 7.8 mg/dL 8.4-10.2 jiux=217) EGFR (BEAKER) (test 74 mL/min/1.73 sq m ESTIMATED GFR IS NOT fnwi=5102) ACCURATE CREATININE CLEARANCE IN PREDICTING GLOMERULAR FILTRATION RATE. ESTIMATED GFR IS NOT APPLICABLE FOR DIALYSIS PATIENTS. [id number] 08:31:00 Test Item Value Reference Range Comments PHOSPHORUS (BEAKER) (test gfsu=971) 2.7 mg/dL 2.3-4.7 [id number] 08:31:00 Test Item Value Reference Range Comments MAGNESIUM (BEAKER) (test wvnm=338) 1.8 mg/dL 1.6-2.6 POCT-GLUCOSE [id number] 07:54:00 Test Item Value Reference Range Comments POC-GLUCOSE METER (BEAKER) 94 mg/dL 70-110 TESTED AT [address] (test pywq=3597) [facility] [address] CBC W/PLT COUNT & AUTO [id number] 07:11:00 Test Item Value Reference Range Comments WHITE BLOOD CELL COUNT (BEAKER) (test jzyi=926) 11.5 K/ L 3.5-10.5 RED BLOOD CELL COUNT (BEAKER) (test wmpj=038) 2.46 M/ L 3.93-5.22 HEMOGLOBIN (BEAKER) (test iqbt=039) 8.3 GM/DL 11.2-15.7 HEMATOCRIT (BEAKER) (test rceh=788) 23.8 % 34.1-44.9 MEAN CORPUSCULAR VOLUME (BEAKER) (test qavd=041) 96.7 fL 79.4-94.8 MEAN CORPUSCULAR HEMOGLOBIN (BEAKER) (test 33.7 pg 25.6-32.2 mscn=474) MEAN CORPUSCULAR HEMOGLOBIN CONC (BEAKER) (test 34.9 GM/DL 32.2-35.5 jmhl=964) RED CELL DISTRIBUTION WIDTH (BEAKER) (test 13.1 % 11.7-14.4 bije=443) PLATELET COUNT (BEAKER) (test ijra=447) 214 K/CU MM 150-450 MEAN PLATELET VOLUME (BEAKER) (test ylej=219) 10.2 fL 9.4-12.3 NUCLEATED RED BLOOD CELLS (BEAKER) (test 0 /100 WBC 0-0 wqjx=837) NEUTROPHILS RELATIVE PERCENT (BEAKER) (test 76 % qsaf=639) LYMPHOCYTES RELATIVE PERCENT (BEAKER) (test 12 % zciu=851) MONOCYTES RELATIVE PERCENT (BEAKER) (test 11 % seee=813) EOSINOPHILS RELATIVE PERCENT (BEAKER) (test 2 % npsm=404) BASOPHILS RELATIVE PERCENT (BEAKER) (test 0 % nryq=189) NEUTROPHILS ABSOLUTE COUNT (BEAKER) (test 8.67 K/ L 1.56-6.13 cpcg=285) LYMPHOCYTES ABSOLUTE COUNT (BEAKER) (test 1.35 K/ L 1.18-3.74 emgh=381) MONOCYTES ABSOLUTE COUNT (BEAKER) (test 1.21 K/ L 0.24-0.36 oohe=347) EOSINOPHILS ABSOLUTE COUNT (BEAKER) (test 0.17 K/ L 0.04-0.36 xtjn=207) BASOPHILS ABSOLUTE COUNT (BEAKER) (test 0.02 K/ L 0.01-0.08 vggq=927) IMMATURE GRANULOCYTES-RELATIVE PERCENT (BEAKER) 1 % 0-1 (test iuhs=4412) BASIC METABOLIC [id number] 22:38:00 Test Item Value Reference Range Comments SODIUM (BEAKER) (test 126 meq/L 136-145 vksg=716) POTASSIUM (BEAKER) (test 3.8 meq/L 3.5-5.1 rpvv=491) CHLORIDE (BEAKER) (test 92 meq/L 98-107 kffh=179) CO2 (BEAKER) (test 28 meq/L 22-29 exzt=077) BLOOD UREA NITROGEN 21 mg/dL 7-21 (BEAKER) (test pdni=557) CREATININE (BEAKER) (test 0.81 mg/dL 0.57-1.25 tuco=804) GLUCOSE RANDOM (BEAKER) 112 mg/dL 70-105 (test ivxz=189) CALCIUM (BEAKER) (test 7.9 mg/dL 8.4-10.2 eoak=705) EGFR (BEAKER) (test 67 mL/min/1.73 sq m ESTIMATED GFR IS NOT uyqg=3740) ACCURATE CREATININE CLEARANCE IN PREDICTING GLOMERULAR FILTRATION RATE. ESTIMATED GFR IS NOT APPLICABLE FOR DIALYSIS PATIENTS. POCT-GLUCOSE [id number] 21:11:00 Test Item Value Reference Range Comments POC-GLUCOSE METER (BEAKER) 121 mg/dL 70-110 TESTED AT [address] (test kgfp=2711) [place] [address] POCT-GLUCOSE [id number] 16:47:00 Test Item Value Reference Range Comments POC-GLUCOSE METER (BEAKER) 128 mg/dL 70-110 TESTED AT [address] (test qwrd=9645) [place] [address] OSMOLALITY, [id number] 15:05:00 Test Item Value Reference Range Comments OSMOLALITY URINE (BEAKER) (test tfsa=454) 237 mOsm/kg 40-1400 SODIUM, RANDOM [id number] 15:03:00 Test Item Value Reference Range Comments SODIUM URINE (BEAKER) (test mwuf=374) < meq/L Reference Range: No NormalsCHLORIDE, RANDOM [id number] 15:03:00 Test Item Value Reference Range Comments CHLORIDE URINE (BEAKER) (test stss=079) < meq/L Reference Range: No NormalsPOTASSIUM, RANDOM [id number] 14:53:00 Test Item Value Reference Range Comments POTASSIUM URINE (BEAKER) (test iusn=464) 16.3 meq/L Reference Range: No NormalsCT, EXTREMITY, UPPER, WITHOUT CONTRAST, [id number] 11:49:00eval L prox humerus fracture patternFINAL REPORT INDICATION:87-year-old female with left proximal humerus fracture. COMPARISON: [...] neck. The primary fracture fragment (humeral shaft) isdisplaced anterolaterally approximately 1.5 cm and angulated 70 [...] clavicle or in the visualized left ribs. IMPRESSION:Three part left humeral neck fracture with anteroinferior severe subluxation of the humeral head and with rotator cuff tear. Signed: Juarez Vidal MDReport Verified Date/Time: 10/16/2017 11:49:30 Reading Location: [address] Transitional Reading Room POCT-GLUCOSE [id number] 11:24:00 Test Item Value Reference Range Comments POC-GLUCOSE METER (BEAKER) 131 mg/dL 70-[address] [facility] [address] [place] [address] (test owhk=6049) [facility] [address] BASIC METABOLIC [id number] 08:08:00 Test Item Value Reference Range Comments SODIUM (BEAKER) (test 124 meq/L 136-145 gvgn=431) POTASSIUM (BEAKER) (test 3.9 meq/L 3.5-5.1 frrm=473) CHLORIDE (BEAKER) (test 89 meq/L 98-107 mfbu=291) CO2 (BEAKER) (test 29 meq/L 22-29 ywun=968) BLOOD UREA NITROGEN 22 mg/dL 7-21 (BEAKER) (test tdwq=677) CREATININE (BEAKER) (test 0.91 mg/dL 0.57-1.25 ifzm=934) GLUCOSE RANDOM (BEAKER) 90 mg/dL 70-105 (test jlup=901) CALCIUM (BEAKER) (test 7.9 mg/dL 8.4-10.2 nuwi=814) EGFR (BEAKER) (test 58 mL/min/1.73 sq m ESTIMATED GFR IS NOT bhoj=7262) ACCURATE CREATININE CLEARANCE IN PREDICTING GLOMERULAR FILTRATION RATE. ESTIMATED GFR IS NOT APPLICABLE FOR DIALYSIS PATIENTS. POCT-GLUCOSE [id number] 07:53:00 Test Item Value Reference Range Comments POC-GLUCOSE METER (BEAKER) 98 mg/dL 70-[address] [facility] [address] [facility] (test odka=2934) [facility] [address] [id number] 07:53:00 Test Item Value Reference Range Comments PHOSPHORUS (BEAKER) (test dpnu=780) 2.9 mg/dL 2.3-4.7 [id number] 07:53:00 Test Item Value Reference Range Comments MAGNESIUM (BEAKER) (test luel=831) 1.5 mg/dL 1.6-2.6 CBC W/PLT COUNT & AUTO [id number] 04:11:00 Test Item Value Reference Range Comments WHITE BLOOD CELL COUNT (BEAKER) (test mror=060) 12.7 K/ L 3.5-10.5 RED BLOOD CELL COUNT (BEAKER) (test knan=505) 2.76 M/ L 3.93-5.22 HEMOGLOBIN (BEAKER) (test usyk=162) 9.2 GM/DL 11.2-15.7 HEMATOCRIT (BEAKER) (test sxpk=495) 27.0 % 34.1-44.9 MEAN CORPUSCULAR VOLUME (BEAKER) (test lwus=884) 97.8 fL 79.4-94.8 MEAN CORPUSCULAR HEMOGLOBIN (BEAKER) (test 33.3 pg 25.6-32.2 bzep=208) MEAN CORPUSCULAR HEMOGLOBIN CONC (BEAKER) (test 34.1 GM/DL 32.2-35.5 vwja=559) RED CELL DISTRIBUTION WIDTH (BEAKER) (test 13.5 % 11.7-14.4 ljbc=228) PLATELET COUNT (BEAKER) (test zikt=960) 212 K/CU MM 150-450 MEAN PLATELET VOLUME (BEAKER) (test unmz=419) 10.4 fL 9.4-12.3 NUCLEATED RED BLOOD CELLS (BEAKER) (test 0 /100 WBC 0-0 vhip=492) NEUTROPHILS RELATIVE PERCENT (BEAKER) (test 68 % jeph=418) LYMPHOCYTES RELATIVE PERCENT (BEAKER) (test 20 % psve=333) MONOCYTES RELATIVE PERCENT (BEAKER) (test 11 % ejdo=358) EOSINOPHILS RELATIVE PERCENT (BEAKER) (test 1 % cklh=577) BASOPHILS RELATIVE PERCENT (BEAKER) (test 0 % yqhz=702) NEUTROPHILS ABSOLUTE COUNT (BEAKER) (test 8.58 K/ L 1.56-6.13 gumi=479) LYMPHOCYTES ABSOLUTE COUNT (BEAKER) (test 2.49 K/ L 1.18-3.74 ufwx=586) MONOCYTES ABSOLUTE COUNT (BEAKER) (test 1.37 K/ L 0.24-0.36 ghtw=462) EOSINOPHILS ABSOLUTE COUNT (BEAKER) (test 0.18 K/ L 0.04-0.36 knmx=002) BASOPHILS ABSOLUTE COUNT (BEAKER) (test 0.03 K/ L 0.01-0.08 qnyc=371) IMMATURE GRANULOCYTES-RELATIVE PERCENT (BEAKER) 0 % 0-1 (test czoj=4468) POCT-GLUCOSE [id number] 20:52:00 Test Item Value Reference Range Comments POC-GLUCOSE METER (BEAKER) 140 mg/dL 70-[address] [facility] [address] [facility] (test twnk=7004) [facility] [address] URINALYSIS W/ REFLEX URINE [id number] 17:10:00 Test Item Value Reference Range Comments COLOR (BEAKER) (test novb=348) Yellow CLARITY (BEAKER) (test juwx=931) Hazy SPECIFIC GRAVITY UA (BEAKER) (test jkhs=861) 1.011 1.001-1.035 PH UA (BEAKER) (test vgba=296) 5.5 5.0-8.0 PROTEIN UA (BEAKER) (test ktss=848) Negative Negative GLUCOSE UA (BEAKER) (test ghdb=510) Negative Negative KETONES UA (BEAKER) (test fgkj=782) Negative Negative BILIRUBIN UA (BEAKER) (test iwvk=691) Negative Negative BLOOD UA (BEAKER) (test utuv=754) Negative Negative NITRITE UA (BEAKER) (test ghsx=232) Negative Negative LEUKOCYTE ESTERASE UA (BEAKER) (test zflt=004) Large Negative UROBILINOGEN UA (BEAKER) (test aedy=243) 0.2 mg/dL 0.2-1.0 RBC UA (BEAKER) (test xnym=395) 1 /HPF WBC UA (BEAKER) (test lyoh=875) 23 /HPF BACTERIA (BEAKER) (test lltp=620) Many MUCUS (BEAKER) (test ohax=8117) Rare HYALINE CASTS (BEAKER) (test wnwm=467) 3 /LPF CRYSTALS, URINE (BEAKER) (test sqtq=8112) Occasional SOURCE(BEAKER) (test hqvi=4355) POCT-GLUCOSE [id number] 16:46:00 Test Item Value Reference Range Comments POC-GLUCOSE METER (BEAKER) 130 mg/dL 70-[address] [facility] [address] [facility] (test xsfl=8475) [facility] [address] CREATINE KINASE (CK), TOTAL AND [id number] 09:09:00 Test Item Value Reference Range Comments CREATINE KINASE TOTAL (BEAKER) (test lauo=088) 98 U/L 29-200 CREATINE KINASE-MB (BEAKER) (test ottp=752) 1.1 ng/mL 0.0-6.6 CREATINE KINASE-MB INDEX (BEAKER) (test kdau=693) 1.1 % CK-MB Reference Range:<6.7 Normal6.7-10.0 Borderline>10.0 AbnormalTROPONIN [id number] 09:09:00 Test Item Value Reference Range Comments TROPONIN I (BEAKER) (test pjpw=649) 0.02 ng/mL 0.00-0.03 Troponin I (TnI) levels must be interpreted [...] failure, acidosis, acute neurological disease, and persistent tachyarrhythmia.POCT-GLUCOSE [id number] 07:52:00 Test Item Value Reference Range Comments POC-GLUCOSE METER (BEAKER) 113 mg/dL 70-[address] [facility] [address] (test jwli=0274) [place] [address] VITAMIN D, [id number] 06:45:00 Test Item Value Reference Range Comments VITAMIN D 25-OH (BEAKER) (test yngg=5497) 29.2 ng/mL 6.6-49.9 Effective 09/01/2017: Reference Range ChangeNew: 6.6-49.9 ng/mL Previous: 13.0 -47.8 ng/mLRecommended Vitamin D Target Range: 30.0-40.0 ng/mLVITAMIN B12 AND [id number] 06:45:00 Test Item Value Reference Range Comments VITAMIN B12 (BEAKER) (test parz=422) 443 pg/mL 213-816 FOLATE (BEAKER) (test hdwz=128) 16.1 ng/mL >=7.0 [id number] 04:58:00 Test Item Value Reference Range Comments PHOSPHORUS (BEAKER) (test crha=860) 3.3 mg/dL 2.3-4.7 [id number] 04:58:00 Test Item Value Reference Range Comments MAGNESIUM (BEAKER) (test fraj=755) 1.6 mg/dL 1.6-2.6 BASIC METABOLIC [id number] 04:58:00 Test Item Value Reference Range Comments SODIUM (BEAKER) (test 131 meq/L 136-145 xmde=920) POTASSIUM (BEAKER) (test 3.7 meq/L 3.5-5.1 ppno=215) CHLORIDE (BEAKER) (test 94 meq/L 98-107 kcon=823) CO2 (BEAKER) (test 30 meq/L 22-29 nboh=553) BLOOD UREA NITROGEN 18 mg/dL 7-21 (BEAKER) (test tzvd=336) CREATININE (BEAKER) (test 0.83 mg/dL 0.57-1.25 tehs=475) GLUCOSE RANDOM (BEAKER) 116 mg/dL 70-105 (test shap=304) CALCIUM (BEAKER) (test 8.3 mg/dL 8.4-10.2 binw=532) EGFR (BEAKER) (test 65 mL/min/1.73 sq m ESTIMATED GFR IS NOT attd=8222) ACCURATE CREATININE CLEARANCE IN PREDICTING GLOMERULAR FILTRATION RATE. ESTIMATED GFR IS NOT APPLICABLE FOR DIALYSIS PATIENTS. HEPATIC FUNCTION [id number] 04:58:00 Test Item Value Reference Range Comments TOTAL PROTEIN (BEAKER) (test cfnx=995) 5.7 gm/dL 6.0-8.3 ALBUMIN (BEAKER) (test ayzz=3216) 3.0 g/dL 3.5-5.0 BILIRUBIN TOTAL (BEAKER) (test zwvx=096) 1.2 mg/dL 0.2-1.2 BILIRUBIN DIRECT (BEAKER) (test vhgc=572) 0.6 mg/dL 0.1-0.5 ALKALINE PHOSPHATASE (BEAKER) (test zbcb=693) 54 U/L 40-150 AST (SGOT) (BEAKER) (test wdkt=871) 24 U/L 5-34 ALT (SGPT) (BEAKER) (test lzls=073) 12 U/L 6-55 CREATINE KINASE (CK), TOTAL AND [id number] 04:58:00 Test Item Value Reference Range Comments CREATINE KINASE TOTAL (BEAKER) (test dpnh=159) 111 U/L 29-200 CREATINE KINASE-MB (BEAKER) (test swwy=814) 1.1 ng/mL 0.0-6.6 CREATINE KINASE-MB INDEX (BEAKER) (test ogso=775) 1.0 % CK-MB Reference Range:<6.7 Normal6.7-10.0 Borderline>10.0 AbnormalTROPONIN [id number] 04:57:00 Test Item Value Reference Range Comments TROPONIN I (BEAKER) (test ofzj=860) < ng/mL 0.00-0.03 Troponin I (TnI) levels must be interpreted [...] failure, acidosis, acute neurological disease, and persistent tachyarrhythmia.CBC W/PLT COUNT & AUTO [id number] 03:08:00 Test Item Value Reference Range Comments WHITE BLOOD CELL COUNT (BEAKER) (test panc=785) 15.1 K/ L 3.5-10.5 RED BLOOD CELL COUNT (BEAKER) (test auzd=514) 2.83 M/ L 3.93-5.22 HEMOGLOBIN (BEAKER) (test lgbr=265) 9.6 GM/DL 11.2-15.7 HEMATOCRIT (BEAKER) (test qbys=234) 27.6 % 34.1-44.9 MEAN CORPUSCULAR VOLUME (BEAKER) (test gidu=119) 97.5 fL 79.4-94.8 MEAN CORPUSCULAR HEMOGLOBIN (BEAKER) (test 33.9 pg 25.6-32.2 yojo=284) MEAN CORPUSCULAR HEMOGLOBIN CONC (BEAKER) (test 34.8 GM/DL 32.2-35.5 znne=689) RED CELL DISTRIBUTION WIDTH (BEAKER) (test 13.7 % 11.7-14.4 udpu=637) PLATELET COUNT (BEAKER) (test vchj=978) 210 K/CU MM 150-450 MEAN PLATELET VOLUME (BEAKER) (test gbmf=404) 10.6 fL 9.4-12.3 NUCLEATED RED BLOOD CELLS (BEAKER) (test 0 /100 WBC 0-0 pzvv=070) NEUTROPHILS RELATIVE PERCENT (BEAKER) (test 67 % rhui=499) LYMPHOCYTES RELATIVE PERCENT (BEAKER) (test 21 % fxgp=909) MONOCYTES RELATIVE PERCENT (BEAKER) (test 11 % kafc=406) EOSINOPHILS RELATIVE PERCENT (BEAKER) (test 1 % dgko=556) BASOPHILS RELATIVE PERCENT (BEAKER) (test 0 % bcja=918) NEUTROPHILS ABSOLUTE COUNT (BEAKER) (test 10.13 K/ L 1.56-6.13 eyqa=573) LYMPHOCYTES ABSOLUTE COUNT (BEAKER) (test 3.14 K/ L 1.18-3.74 hfcp=987) MONOCYTES ABSOLUTE COUNT (BEAKER) (test 1.70 K/ L 0.24-0.36 kgmc=611) EOSINOPHILS ABSOLUTE COUNT (BEAKER) (test 0.09 K/ L 0.04-0.36 zmhv=417) BASOPHILS ABSOLUTE COUNT (BEAKER) (test 0.03 K/ L 0.01-0.08 ptad=392) IMMATURE GRANULOCYTES-RELATIVE PERCENT (BEAKER) 0 % 0-1 (test syxx=1459) CREATINE KINASE (CK), TOTAL AND [id number] 22:23:00 Test Item Value Reference Range Comments CREATINE KINASE TOTAL (BEAKER) (test yuwd=358) 122 U/L 29-200 CREATINE KINASE-MB (BEAKER) (test frmx=375) 1.5 ng/mL 0.0-6.6 CREATINE KINASE-MB INDEX (BEAKER) (test jigg=825) 1.2 % CK-MB Reference Range:<6.7 Normal6.7-10.0 Borderline>10.0 AbnormalTROPONIN [id number] 22:23:00 Test Item Value Reference Range Comments TROPONIN I (BEAKER) (test hhaz=648) 0.02 ng/mL 0.00-0.03 Troponin I (TnI) levels must be interpreted [...] failure, acidosis, acute neurological disease, and persistent tachyarrhythmia.POCT-GLUCOSE [id number] 21:12:00 Test Item Value Reference Range Comments POC-GLUCOSE METER (BEAKER) 164 mg/dL 70-110 TESTED AT [address] (test ihxf=0110) [place] [address] POCT-GLUCOSE [id number] 17:40:00 Test Item Value Reference Range Comments POC-GLUCOSE METER (BEAKER) 98 mg/dL 70-110 TESTED AT [address] (test mqvp=2208) [place] [address] HEMOGLOBIN [id number] 13:02:00 Test Item Value Reference Range Comments HEMOGLOBIN A1C (BEAKER) (test xjpj=189) 5.7 % 4.3-6.1 POCT-GLUCOSE [id number] 12:01:00 Test Item Value Reference Range Comments POC-GLUCOSE METER (BEAKER) 98 mg/dL 70-110 TESTED AT [address] (test jeay=0359) [place] [address] MR, MRA, BRAIN, WITHOUT [id number] 10:12:00Reason for exam:-> Suspected Oconnor's syndrome (R midbrain infarction)FINAL REPORT MRA brain and neck without contrast 10/14/2017 10:11 AM CLINICALHISTORY : StrokeSuspected Oconnor's syndrome (R midbrain infarction) COMPARISON: None available TECHNIQUE: Two- and three-dimensional fafl-zf-ofkyfz MRA images of the intra- and extracranial arterial vasculature was performed, from which maximal intensity projection 3-D reconstructions were created. FINDINGS: MRA neck: There is no vessel occlusion or flow-limiting stenosis. There is no NASCET -quantifiable cervical internal carotid artery stenosis. Flow is antegrade in both vertebral arteries. MRA [place]: There is no vessel occlusion, flow-limiting stenosis, or aneurysm. IMPRESSION: Negativeintra- and extracranial MRAs. Signed: Kalia Nelson Verified Date/Time: 2016 10:12:21 Reading Location: [address] Neuro Reading Room MR, MRA, NECK, WITHOUT IV [id number] 10:12:00Reason for exam:->Stroke evalFINAL REPORT MRA brain and neck without contrast 10:11 AM CLINICALHISTORY: StrokeSuspected Oconnor's syndrome (R midbrain infarction) COMPARISON: None available TECHNIQUE: Two- and three-dimensional dfmb-gy-wxrzce MRA images of the intra- and extracranial arterial vasculature was performed, from which maximal intensity projection 3-D reconstructions were created. FINDINGS: MRA neck: There is no vessel occlusion or flow-limiting stenosis. There is no NASCET-quantifiable cervical internal carotid artery stenosis. Flow is antegrade in both vertebral arteries. MRA [place]: There is no vessel occlusion, flow-limiting stenosis, or aneurysm. IMPRESSION: Negativeintra- and extracranial MRAs. Signed: Kalia Nelson Verified Date/Time: 10/14/2017 10:12:21 Reading Location: [address] Neuro Reading Room MR, BRAIN, WITHOUT [id number] 10:10:00Reason for exam:->Stroke evaluationFINAL REPORT MRI brain without contrast 2016 10:07 AM CLINICAL INDICATION: StrokeStroke evaluation TECHNIQUE: Multiplanar, multisequence MR imaging of the brain was performed utilizing the following imaging sequences: Axial T1, T2, FLAIR, GRE, and DWI; sagittal and coronalT1-weighted images. COMPARISON: None available FINDINGS: There is a tiny acute nonhemorrhagic infarct in the paramedian right mesencephalon, adjacent to the cerebral aqueduct. There is no hematoma, mass, hydrocephalus, or extra- axial collection. There is mild chronic microvascular ischemia in the supratentorial white matter. There is generalized parenchymal volume loss.Normal appearing flow-voids are present in the major intracranial vascular structures. The [place] and pineal regions are normal. The craniovertebral junction is intact. The orbits, face, and skull base are without worrisome finding. IMPRESSION: 1. Acute nonhemorrhagic right mesencephalic infarct. 2. Mild chronic microvascular ischemia. Signed: Kalia Nelson Verified Date/Time: 10/14/2017 10:10:31 Reading Location: [address] Neuro Reading Room 10: 10AMPOCT-GLUCOSE [id number] 08:22:00 Test Item Value Reference Range Comments POC-GLUCOSE METER (BEAKER) 94 mg/dL 70-110 TESTED AT [address] (test ioqa=0269) [facility] [id number] POCT-GLUCOSE [id number] 06:49:00 Test Item Value Reference Range Comments POC-GLUCOSE METER (BEAKER) 98 mg/dL 70-110 TESTED AT [address] (test uxld=8125) [place] [place] [id number] VITAMIN [id number] 04:03:00 Test Item Value Reference Range Comments VITAMIN B12 (BEAKER) (test pmfo=207) 488 pg/mL 213-816 TSH/FREE T4 IF [id number] 04:03:00 Test Item Value Reference Range Comments THYROID STIMULATING HORMONE (BEAKER) (test 1.12 uIU/mL 0.35-4.94 nzdr=385) [id number] 03:34:00 Test Item Value Reference Range Comments PHOSPHORUS (BEAKER) (test kego=212) 4.0 mg/dL 2.3-4.7 [id number] 03:34:00 Test Item Value Reference Range Comments MAGNESIUM (BEAKER) (test pzpw=574) 1.5 mg/dL 1.6-2.6 FastingBASIC METABOLIC [id number] 03:34:00 Test Item Value Reference Range Comments SODIUM (BEAKER) (test 130 meq/L 136-145 plau=808) POTASSIUM (BEAKER) (test 3.9 meq/L 3.5-5.1 ebsp=392) CHLORIDE (BEAKER) (test 94 meq/L 98-107 ijnj=014) CO2 (BEAKER) (test 28 meq/L 22-29 vhvb=979) BLOOD UREA NITROGEN 21 mg/dL 7-21 (BEAKER) (test rsrj=588) CREATININE (BEAKER) (test 0.89 mg/dL 0.57-1.25 yvlv=982) GLUCOSE RANDOM (BEAKER) 98 mg/dL 70-105 (test jhtc=987) CALCIUM (BEAKER) (test 8.6 mg/dL 8.4-10.2 gcjp=024) EGFR (BEAKER) (test 60 mL/min/1.73 sq m ESTIMATED GFR IS NOT rwds=0050) ACCURATE CREATININE CLEARANCE IN PREDICTING GLOMERULAR FILTRATION RATE. ESTIMATED GFR IS NOT APPLICABLE FOR DIALYSIS PATIENTS. FastingLIPID [id number] 03:34:00 Test Item Value Reference Range Comments TRIGLYCERIDES (BEAKER) (test gruy=466) 74 mg/dL CHOLESTEROL (BEAKER) (test tdyd=491) 99 mg/dL HDL CHOLESTEROL (BEAKER) (test vwkf=050) 49 mg/dL LDL CHOLESTEROL CALCULATED (BEAKER) (test vrem=949) 35 mg/dL Triglyceride Reference Range: Low Risk <150 Borderline 150- 199 High Risk 200-499 Very High Risk >=500Cholesterol Reference Range: Low Risk <200 Borderline 200-239 High Risk > 240HDL Cholesterol Reference Range: Low Risk >=60 High Risk <40LDL Cholesterol Reference Range: Optimal <100 Near Optimal 100-129 Borderline 130-159 High 160-189 Very High >=190 FastingCBC W/PLT COUNT & AUTO [id number] 03:16:00 Test Item Value Reference Range Comments WHITE BLOOD CELL COUNT (BEAKER) (test cfzx=250) 12.0 K/ L 3.5-10.5 RED BLOOD CELL COUNT (BEAKER) (test weiv=180) 3.04 M/ L 3.93-5.22 HEMOGLOBIN (BEAKER) (test augl=569) 10.2 GM/DL 11.2-15.7 HEMATOCRIT (BEAKER) (test zqhx=536) 29.0 % 34.1-44.9 MEAN CORPUSCULAR VOLUME (BEAKER) (test fzjw=830) 95.4 fL 79.4-94.8 MEAN CORPUSCULAR HEMOGLOBIN (BEAKER) (test 33.6 pg 25.6-32.2 fiyw=003) MEAN CORPUSCULAR HEMOGLOBIN CONC (BEAKER) (test 35.2 GM/DL 32.2-35.5 skbq=681) RED CELL DISTRIBUTION WIDTH (BEAKER) (test 13.4 % 11.7-14.4 oiid=130) PLATELET COUNT (BEAKER) (test ruhq=500) 223 K/CU MM 150-450 MEAN PLATELET VOLUME (BEAKER) (test rmvb=042) 10.1 fL 9.4-12.3 NUCLEATED RED BLOOD CELLS (BEAKER) (test 0 /100 WBC 0-0 hjmp=387) NEUTROPHILS RELATIVE PERCENT (BEAKER) (test 64 % mtua=232) LYMPHOCYTES RELATIVE PERCENT (BEAKER) (test 27 % gsmb=241) MONOCYTES RELATIVE PERCENT (BEAKER) (test 9 % txba=085) EOSINOPHILS RELATIVE PERCENT (BEAKER) (test 0 % pdnz=286) BASOPHILS RELATIVE PERCENT (BEAKER) (test 0 % zhvf=662) NEUTROPHILS ABSOLUTE COUNT (BEAKER) (test 7.70 K/ L 1.56-6.13 aujo=059) LYMPHOCYTES ABSOLUTE COUNT (BEAKER) (test 3.19 K/ L 1.18-3.74 ksfb=459) MONOCYTES ABSOLUTE COUNT (BEAKER) (test 1.04 K/ L 0.24-0.36 npzt=692) EOSINOPHILS ABSOLUTE COUNT (BEAKER) (test 0.03 K/ L 0.04-0.36 emqc=381) BASOPHILS ABSOLUTE COUNT (BEAKER) (test 0.02 K/ L 0.01-0.08 tvtg=002) IMMATURE GRANULOCYTES-RELATIVE PERCENT (BEAKER) 0 % 0-1 (test wiaj=5050) RAD, HUMERUS, MIN 2 VIEWS, [id number] 23:06:00Reason for exam:-> fractureFINAL REPORT Left humerus. Clinical history: Fracture. COMPARISON STUDY: Noneavailable. FINDINGS: Two views of the left humerus demonstrate a mildly displaced fracture through the surgical neck with marked humeral shortening. Some comminution may be present. IMPRESSION: Proximal humeral fracture. Signed: Bobby Moore MDReport Verified Date/Time: 2017 23:06:31 ReadingLocation: [facility] B1 C013W Consult Reading Room POCT- GLUCOSE [id number] 18:50:00 Test Item Value Reference Range Comments POC-GLUCOSE METER (BEAKER) 125 mg/dL 70-[address] [facility] [address] [facility] (test mixg=6929) [facility] [address] CBC W/PLT COUNT & AUTO [id number] 16:57:00 Test Item Value Reference Range Comments WHITE BLOOD CELL COUNT (BEAKER) (test uawu=792) 15.1 K/ L 3.5-10.5 RED BLOOD CELL COUNT (BEAKER) (test vesz=945) 3.59 M/ L 3.93-5.22 HEMOGLOBIN (BEAKER) (test ciih=300) 12.1 GM/DL 11.2-15.7 HEMATOCRIT (BEAKER) (test igyt=879) 35.5 % 34.1-44.9 MEAN CORPUSCULAR VOLUME (BEAKER) (test yjoo=808) 98.9 fL 79.4-94.8 MEAN CORPUSCULAR HEMOGLOBIN (BEAKER) (test 33.7 pg 25.6-32.2 mcqh=451) MEAN CORPUSCULAR HEMOGLOBIN CONC (BEAKER) (test 34.1 GM/DL 32.2-35.5 ctgj=965) RED CELL DISTRIBUTION WIDTH (BEAKER) (test 13.4 % 11.7-14.4 nrwp=341) PLATELET COUNT (BEAKER) (test tlsv=249) 252 K/CU MM 150-450 MEAN PLATELET VOLUME (BEAKER) (test bwjf=598) 11.6 fL 9.4-12.3 NUCLEATED RED BLOOD CELLS (BEAKER) (test 0 /100 WBC 0-0 dbmg=712) NEUTROPHILS RELATIVE PERCENT (BEAKER) (test 83 % pvoj=725) LYMPHOCYTES RELATIVE PERCENT (BEAKER) (test 11 % jncu=500) MONOCYTES RELATIVE PERCENT (BEAKER) (test 6 % rcwu=328) EOSINOPHILS RELATIVE PERCENT (BEAKER) (test 0 % nktl=285) BASOPHILS RELATIVE PERCENT (BEAKER) (test 0 % aayl=850) NEUTROPHILS ABSOLUTE COUNT (BEAKER) (test 12.49 K/ L 1.56-6.13 isif=735) LYMPHOCYTES ABSOLUTE COUNT (BEAKER) (test 1.65 K/ L 1.18-3.74 zkea=204) MONOCYTES ABSOLUTE COUNT (BEAKER) (test 0.83 K/ L 0.24-0.36 kxvq=395) EOSINOPHILS ABSOLUTE COUNT (BEAKER) (test 0.00 K/ L 0.04-0.36 qwel=705) BASOPHILS ABSOLUTE COUNT (BEAKER) (test 0.04 K/ L 0.01-0.08 vgmw=964) IMMATURE GRANULOCYTES-RELATIVE PERCENT (BEAKER) 0 % 0-1 (test xgjy=3487) BASIC METABOLIC [id number] 16:27:00 Test Item Value Reference Range Comments SODIUM (BEAKER) (test 134 meq/L 136-145 kxzm=962) POTASSIUM (BEAKER) (test 3.8 meq/L 3.5-5.1 drts=568) CHLORIDE (BEAKER) (test 96 meq/L 98-107 nevy=893) CO2 (BEAKER) (test 27 meq/L 22-29 vwdl=931) BLOOD UREA NITROGEN 21 mg/dL 7-21 (BEAKER) (test jnmt=735) CREATININE (BEAKER) (test 1.02 mg/dL 0.57-1.25 nacz=038) GLUCOSE RANDOM (BEAKER) 118 mg/dL 70-105 (test dvpb=576) CALCIUM (BEAKER) (test 9.3 mg/dL 8.4-10.2 cyav=023) EGFR (BEAKER) (test 51 mL/min/1.73 sq m ESTIMATED GFR IS NOT gdfi=1554) ACCURATE CREATININE CLEARANCE IN PREDICTING GLOMERULAR FILTRATION RATE. ESTIMATED GFR IS NOT APPLICABLE FOR DIALYSIS PATIENTS. [id number] 16:07:00 Test Item Value Reference Range Comments PARTIAL THROMBOPLASTIN TIME (BEAKER) (test 33.1 seconds 22.5-36.0 kkby=714) PROTHROMBIN TIME/[id number] 16:06:00 Test Item Value Reference Range Comments PROTIME (BEAKER) (test ucev=883) 14.4 seconds 11.7-14.7 INR (BEAKER) (test ienz=592) 1.1 <=5.9 RECOMMENDED COUMADIN/WARFARIN INR THERAPY RANGESSTANDARD DOSE: 2.0 - 3.0 Includes: PROPHYLAXIS forvenous thrombosis, systemic embolization; TREATMENT for venous thrombosis and/or pulmonary embolus.HIGH RISK: Target INR is 2.5-3.5 for patients with mechanical heart valves.
--- NOTE | 2018-08-28 09:25 | ER ---
Nurse's Notes [facility] Name: Rylee Mckeon Age: 87 yrs Sex: Female : 1930 Arrival Date: 08/28/2018 Time: 08:37 Bed 14 Private MD: Faisal Khan C Diagnosis: Left breast pain;Strain of muscle and tendon of front wall of thorax-left pectoralis Presentation: 08/28 08:45 Presenting complaint: Patient states: Intermittent sharp pain in left breast. Denies hb injury. Transition of care: patient was not received from another setting of care. Onset of symptoms was August 28, 2018. Risk Assessment: Do you want to hurt yourself or someone else? Patient reports no desire to harm self or others. Care prior to arrival: None. 08:45 Method Of Arrival: Ambulatory 08:45 Acuity: JOSÉ MIGUEL 3 hb 09:28 Initial Sepsis Screen: Does the patient meet any 2 criteria? No. Patient's initial em sepsis screen is negative. Does the patient have a suspected source of infection? No. Patient's initial sepsis screen is negative. Historical: - Allergies: 08:50 PENICILLINS; hb - Home Meds: 08:50 amlodipine 20 mg tab [Active]; aspirin 81 mg Oral chew 1 tab once daily [Active]; hb atorvastatin 10 mg Oral tab [Active]; Caltrate with Vitamin D3 Oral [Active]; hydralazine 25 mg Oral tab 1 tab 2 times per day [Active]; hydrochlorothiazide 12.5 mg Oral tab 1 tab once daily [Active]; Linzess 600 mcg Oral [Active]; Lopressor 50 mg Oral tab [Active]; - PMHx: 08:50 CVA; DVT; Hypertension; hb - PSHx: 08:50 Hysterectomy; Hernia repair; Cholecystectomy; Knee surgery; hb - Immunization history:: Adult Immunizations up to date. - Social history:: Smoking status: Patient/guardian denies using tobacco. - Ebola Screening: : No symptoms or risks identified at this time. Screenin:58 Abuse screen: Denies threats or abuse. Nutritional screening: No deficits noted. em Tuberculosis screening: No symptoms or risk factors identified. Fall Risk None identified. Assessment: 09:06 General: Appears in no apparent distress. comfortable, Behavior is calm, cooperative. em Pain: Complains of pain in left breast Pain currently is 8 out of 10 on a pain scale. Neuro: Level of Consciousness is awake, alert, obeys commands, Oriented to person, place, time, situation, Denies dizziness, headache. Cardiovascular: Capillary refill < 3 seconds Patient's skin is warm and dry. Respiratory: Airway is patent Respiratory effort is even, unlabored, Respiratory pattern is regular, symmetrical, Breath sounds are clear bilaterally. GI: Abdomen is flat, Patient currently denies nausea, vomiting. : No signs and/or symptoms were reported regarding the genitourinary system. EENT: No signs and/or symptoms were reported regarding the EENT system. Derm: Skin is intact, Skin is pink, warm \T\ dry. Musculoskeletal: Range of motion: intact in all extremities. 09:15 Reassessment: I agree with previous assessment. hb Vital Signs: 08:49 BP 202 / 80; Pulse 62; Resp 16; Temp 98.5; Pulse Ox 100% on R/A; Pain 8/10; hb 09:21 BP 170 / 70; Pulse 53; Resp 19; Pulse Ox 98% on R/A; dh3 ED Course: 08:37 Patient arrived in ED. as 08:37 Faisal Khan MD is Private Physician. as 08:45 Ezekiel Oliver LVN is Primary Nurse. em 08:45 Haris Del Rio NP is PHCP. pm1 08:45 Asaf Long MD is Attending Physician. pm1 08:49 Triage completed. hb 08:50 Arm band placed on right wrist. hb 08:58 Patient has correct armband on for positive identification. Placed in gown. Bed in low em position. Call light in reach. Side rails up X2. Adult w/ patient. 09:27 No provider procedures requiring assistance completed. Patient did not have IV access em during this emergency room visit. Administered Medications: 09:25 Drug: traMADol 50 mg Route: PO; em 09:36 Follow up: Response: Medication administered at discharge. em Outcome: 09:25 Discharge ordered by . pm1 09:32 Discharged to home ambulatory, with family. em 09:32 Condition: good 09:32 Discharge instructions given to patient, family, Instructed on discharge instructions, follow up and referral plans. medication usage, Demonstrated understanding of instructions, follow-up care, medications, Prescriptions given X 1. 09:35 Patient left the ED. em Signatures: Ezekiel Oliver, APPRENTICE MACHINIST OUTSIDE APPRENTICE MACHINIST OUTSIDE em Rosalee Washington Patrick, ARSEN LAMP SHADE MAKER pm1 Desirae Koroma RN RN Elodia Donaldson 3 Corrections: (The following items were deleted from the chart) 08:53 08:45 Acuity: JOSÉ MIGUEL 4 hb hb
--- NOTE | 2018-08-28 09:26 | EDPHYS ---
Physician Documentation [facility] Name: Rylee Mckeon Age: 87 yrs Sex: Female : 1930 Arrival Date: 08/28/2018 Time: 08:37 Bed 14 Private MD: Faisal Khan C ED Physician Asaf Long HPI: 08/28 09:00 This 87 yrs old Female presents to ER via Ambulatory with complaints of Left pm1 Breast Pain, High Blood Pressure. 09:00 The patient has elevated blood pressure and discovered this at home, with a home pm1 device, after onset of left breast pain this AM. Onset: The symptoms/episode began/occurred this morning, at 06:00. Modifying factors: The symptoms are aggravated by palpation of the left breast. Associated signs and symptoms: Pertinent negatives: chest pain, dizziness, dyspnea, headache, nausea, vomiting, weakness, shortness of breath. Severity of symptoms: in the emergency department the blood pressure is improved. The patient has not experienced similar symptoms in the past. The patient has not recently seen a physician, the patient's primary care provider is Dr. Khan. Patient not generally very active physically. Patient raked leaves yesterday and is presenting here today with left breast pain and hypertension. Patient reports that he blood pressure has been elevated with the episodes of pain. Now that her breast pain improving her blood pressure is normalizing. Historical: - Allergies: 08:50 PENICILLINS; hb - Home Meds: 08:50 amlodipine 20 mg tab [Active]; aspirin 81 mg Oral chew 1 tab once daily [Active]; hb atorvastatin 10 mg Oral tab [Active]; Caltrate with Vitamin D3 Oral [Active]; hydralazine 25 mg Oral tab 1 tab 2 times per day [Active]; hydrochlorothiazide 12.5 mg Oral tab 1 tab once daily [Active]; Linzess 600 mcg Oral [Active]; Lopressor 50 mg Oral tab [Active]; - PMHx: 08:50 CVA; DVT; Hypertension; hb - PSHx: 08:50 Hysterectomy; Hernia repair; Cholecystectomy; Knee surgery; hb - Immunization history:: Adult Immunizations up to date. - Social history:: Smoking status: Patient/guardian denies using tobacco. - Ebola Screening: : No symptoms or risks identified at this time. ROS: 09:00 Constitutional: Negative for fever, chills, and weight loss, Eyes: Negative for injury, pm1 pain, redness, and discharge, ENT: Negative for injury, pain, and discharge, Neck: Negative for injury, pain, and swelling, Cardiovascular: Negative for chest pain, palpitations, and edema, Respiratory: Negative for shortness of breath, cough, wheezing, and pleuritic chest pain, Abdomen/GI: Negative for abdominal pain, nausea, vomiting, diarrhea, and constipation, Back: Negative for injury and pain, MS/Extremity: Negative for injury and deformity, Skin: Negative for injury, rash, and discoloration, Neuro: Negative for headache, weakness, numbness, tingling, and seizure. Exam: 09:00 Constitutional: This is a well developed, well nourished patient who is awake, alert, pm1 and in no acute distress. Head/Face: Normocephalic, atraumatic. Eyes: Pupils equal round and reactive to light, extra-ocular motions intact. Lids and lashes normal. Conjunctiva and sclera are non-icteric and not injected. Cornea within normal limits. Periorbital areas with no swelling, redness, or edema. ENT: Nares patent. No nasal discharge, no septal abnormalities noted. Tympanic membranes are normal and external auditory canals are clear. Oropharynx with no redness, swelling, or masses, exudates, or evidence of obstruction, uvula midline. Mucous membranes moist. Neck: Trachea midline, no thyromegaly or masses palpated, and no cervical lymphadenopathy. Supple, full range of motion without nuchal rigidity, or vertebral point tenderness. No Meningismus. 09:00 Cardiovascular: Regular rate and rhythm with a normal S1 and S2. No gallops, murmurs, or rubs. Normal PMI, no JVD. No pulse deficits. Respiratory: Lungs have equal breath sounds bilaterally, clear to auscultation and percussion. No rales, rhonchi or wheezes noted. No increased work of breathing, no retractions or nasal flaring. Abdomen/GI: Soft, non-tender, with normal bowel sounds. No distension or tympany. No guarding or rebound. No evidence of tenderness throughout. Back: No spinal tenderness. No costovertebral tenderness. Full range of motion. Skin: Warm, dry with normal turgor. Normal color with no rashes, no lesions, and no evidence of cellulitis. MS/ Extremity: Pulses equal, no cyanosis. Neurovascular intact. Full, normal range of motion. 09:00 Chest/axilla: Inspection: normal, no abrasion, no abscess, no rash, Palpation: crepitus, is not appreciated, tenderness, of the focal point of left breast tissue, that totally reproduces the patient's complaints, Breasts: abscess, not appreciated, cellulitis, is not appreciated, rash, is not appreciated, tenderness, that is moderate, of the left breast. 09:00 Neuro: Orientation: is normal, Motor: is normal, moves all fours. Vital Signs: 08:49 BP 202 / 80; Pulse 62; Resp 16; Temp 98.5; Pulse Ox 100% on R/A; Pain 8/10; hb 09:21 BP 170 / 70; Pulse 53; Resp 19; Pulse Ox 98% on R/A; dh3 MDM: 08:45 Patient medically screened. pm1 09:19 ED course: Patient evaluated by Dr. Long. Elodia and I were present as chaperones for pm1 evaluation of patient's left breast. His impression is pectoralis muscle strain and breast tissue tenderness. Patient was raking leaves yesterday which not normal for her to perform. Agrees no further work up necessary and patient can be discharged to home with follow up with PCP and return precautions. . 09:20 Data reviewed: vital signs. Data interpreted: Pulse oximetry: on room air is 100 %. pm1 Interpretation: normal. Counseling: I had a detailed discussion with the patient and/or guardian regarding: the historical points, exam findings, and any diagnostic results supporting the discharge/admit diagnosis, the need for outpatient follow up, to return to the emergency department if symptoms worsen or persist or if there are any questions or concerns that arise at home. Administered Medications: 09:25 Drug: traMADol 50 mg Route: PO; em 09:36 Follow up: Response: Medication administered at discharge. em Disposition: 18:27 Co-signature as Attending Physician, Asaf Long MD Available for consultation at ps1 all times. . Disposition: 08/28/18 09:25 Discharged to Home. Impression: Left breast pain, Strain of muscle and tendon of front wall of thorax - left pectoralis. - Condition is Stable. - Discharge Instructions: Muscle Strain, Breast Tenderness. - Prescriptions for Tramadol 50 mg Oral Tablet - take 1 tablet by ORAL route every 12 hours as needed; 12 tablet. - Medication Reconciliation Form, Thank You Letter, Prescription Opioid Use form. - Follow up: Emergency Department; When: As needed; Reason: Worsening of condition. Follow up: Private Physician; When: 2 - 3 days; Reason: Recheck today's complaints, Continuance of care, Re-evaluation by your physician. - Problem is new. - Symptoms have improved. Signatures: Ezekiel Oliver, RISSA MATERIAL HANDLER em Haris Del Rio, RETORT ENGINEER RETORT ENGINEER pm1 Desirae Koroma, SISSY RN Asaf Marshall MD MD ps1 Corrections: (The following items were deleted from the chart) 09:35 09:25 08/28/2018 09:25 Discharged to Home. Impression: Left breast pain; Strain of em muscle and tendon of front wall of thorax - left pectoralis. Condition is Stable. Forms are Medication Reconciliation Form, Thank You Letter, Antibiotic Education, Prescription Opioid Use. Follow up: Emergency Department; When: As needed; Reason: Worsening of condition. Follow up: Private Physician; When: 2 - 3 days; Reason: Recheck today's complaints, Continuance of care, Re-evaluation by your physician. Problem is new. Symptoms have improved. pm1
[2018-08-28] MEDS ORDERED: TRAMADOL HCL 50 MG TAB ONE (09:30)
[2018-08-28 09:40] VITALS: TEMP 98.5
[2018-08-28 09:41] VITALS: BP 170/70; O2SAT 98
== END 2018-08-28 09:35 | disposition home or self-care (01) ==
LOC: ER 08:35
DX: S29.011A Strain of muscle and tendon of front wall of thorax, initial encounter (principal); I10 Essential (primary) hypertension; X58.XXXA Exposure to other specified factors, initial encounter; Y93.9 Activity, unspecified; Y92.9 Unspecified place or not applicable; Z88.0 Allergy status to penicillin
CPT/HCPCS: 99283